=== PATIENT | female | born 1935 | race Caucasian/White ===

== ENCOUNTER 2018-01-02 12:27 | Inpatient (IN) ==
[2018-01-02] MEDS ORDERED: Naloxone 0.4 MG/ML INJ IVP PRN ×2 (15:23→15:40)
[2018-01-02] MEDS ORDERED: *HR* Heparin 5,000 UNIT/ML VIAL IVP ONE (15:54)
[2018-01-02] MEDS ORDERED: *HR* Heparin 5,000 UNIT/ML VIAL IVP PRN ×2 (15:54)
[2018-01-02] MEDS ORDERED: Ipratropium/Albuterol Neb 3 ML IH PRN (15:59)
[2018-01-02] MEDS ORDERED: Heparin 25,000 UNIT/500 ML D5W 25,000 UNIT/500 ML BAG IVC SCH (16:00)
[2018-01-02 16:29] LABS: INR 1.1; Prothrombin Time 12.1 Seconds (9.4-12.1)
[2018-01-02 16:32] LABS: Activated Partial Thrombo Time 40.2 Seconds (26.0-36.0)
[2018-01-02 16:37] LABS: Hemoglobin 10.8 g/dL (11.5-15.4); Mean Corpuscular HGB Conc 31.8 g/dL (31.6-35.5); Mean Corpuscular Hemoglobin 27.8 pg (28.0-33.3); Mean Corpuscular Volume 87.6 fL (83.0-100.0); Mean Platelet Volume 10.7 fL (9.4-12.4); Platelet Count 287 K/mcL (140-400); Red Blood Count 3.88 M/mcL (3.82-4.97); Red Cell Distribution Width 15.6 % (11.5-14.5)
--- NOTE | 2018-01-02 17:28 | Internal Med History&Physical ---
Date of Encounter: 01/02/18 Time of Encounter: 15:00 Internal Medicine - H&P: HPI Chief complaint: lethargy Admitted From: Home Plans for Post Hospital Care: Home History of present illness: Ms. Lopez is a 82 year old female with past medical history of COPD, diabetes, tobacco abuse presented to [facility] ED with 3 week history of lethargy. She states that she has been feeling generally unwell with occasional cough. Denies chest pain, SOB, palpitation, orthopnea, PND, or LE edema. She was seen by her PCP yesterday and had lab/CXR done which were abnormal hence she was directed to the ED. She does not have any known coronary disease but does have a history of AAA repair. Continues to smoke 1 pack a day. No fever/chills, nausea/vomiting, abdominal pain, or dysuria. On presentation to the ED, she was afebrile but BP was 98/55. SpO2 83% on RA which improved to 97% with venti mask. Initial labs showed WBC of 18.1, lactic acid 2.6, troponin 21, Cr 3.39, K 3.1. BNP 766, CXR showed L perihilar consolidation. EKG NSR, no ST-T changes concerning for ischemia. She was given ASA 324mg, IV Erick/azithromycin, and was transferred to [facility] for further management. Past Med Surg Social Fam HX - Past Medical History Medical history: COPD, diabetes, hyperlipidemia, hypertension, peripheral artery disease Psychiatric history: no psych history - Past Surgical History Surgical History: cataract, herniorrhaphy, vascular surgery Additional surgical history: AAA repair - Social History Smoking Status: Current every day smoker Packs per day: 1 Smokeless Tobacco Status: No Alcohol use: none Drug use: none - Family History Father History Unknown: Yes Mother History Unknown: Yes Internal Medicine - H&P: Meds Acetaminophen [Tylenol Arthritis] 650 mg PO Q6HR PRN 01/02/18 [History] Furosemide [Lasix] 40 mg PO DAILY 01/02/18 [History] Gabapentin [Neurontin] 200 mg PO TID 01/02/18 [History] Insulin Glargine [Lantus] 40 unit SQ TID 01/02/18 [History] Loratadine [Allergy Relief] 10 mg PO DAILY 01/02/18 [History] 3 Allergy/AdvReac Type Severity Reaction Status Date / Time No Known Allergies Allergy Verified 01/02/18 11:31 All Systems PM: A 10-system review of systems was performed and is negative for pertinent findings except as documented above in the HPI. - Constitutional Vitals: Pulse Resp BP Pulse Ox 72 18 94/58 94 01/02/18 14:30 01/02/18 14:30 01/02/18 14:30 01/02/18 14:30 Exam: General: Alert and oriented HEENT:EOM, pupils equal, round, and reactive. Cardiovascular:Normal S1 & S2, no murmurs or gallops. No JVD. Pulse regular. No LE edema. No chest wall tenderness Lungs: L>R scattered wheezes, no crackles. Abdomen:Soft, non-tender, no rigidity. Extremities:No deformity, no edema or tenderness, no joint swelling. Neurological:Normal cognition and motor skills. Skin:Normal color, no rash, no lesions. Pulses:Carotid and radial pulses normal +2. Rest of the physical exam is non-contributory Internal Med - H&P Results - Labs CBC & Chem 7: 01/02/18 16:06 Labs: Short CBC 01/02/18 Range/Units 16:06 WBC 17.7 H (4.3-11.1) K/mcL Hgb 10.8 L (11.5-15.4) g/dL Hct 34.0 L (35.3-44.9) % Plt Count 287 (140-400) K/mcL Cardiac Enzymes 01/02/18 Range/Units 16:02 Troponin I 47.53 H* (< 0.04) ng/mL - ABG Interpretation Additional comments: Mild hypercarbia with normal pH - EKG Data -: EKG Interpreted by Myself EKG shows normal: sinus rhythm Rate: normal - EKG Data Prior EKG available for review: no - Diagnostic Studies Chest x-ray Additional comments: L perihilar consolidation - Assessment and plan (1) Severe sepsis with acute organ dysfunction Current Visit: Yes Status: Acute Assessment and plan: Likely due to left-sided pneumonia, presented with lethargy, leukocytosis, elevated Cr and lactate. BP borderline on presentation responsive to IVF. lactate improved with IVF Given IV Rocephin and azithromycin at the outside hospital, will continue Bronchodilators PRN (2) Pneumonia Current Visit: Yes Status: Acute Assessment and plan: CURB 65 score of 3 Abx and bronchodilators as above Qualifiers: Pneumonia type: due to unspecified organism Laterality: left Lung location: lower lobe of lung Qualified Code(s): J18.1 - Lobar pneumonia, unspecified organism (3) NSTEMI (non-ST elevated myocardial infarction) Current Visit: Yes Status: Acute Assessment and plan: Trop 21 -> 47, doesn't have any anginal symptoms or ST elevation on EKG discussed with cardiology, likely type II event due to sepsis. Also has FABIANA which would prohibit contrast use Given ASA at OSH, started on heparin gtt Trend troponin Echocardiogram A1c, lipid panel tomorrow Cardiology consult (4) FABIANA (acute kidney injury) Current Visit: Yes Status: Acute Assessment and plan: Likely prerenal due to a combination of poor oral intake and ongoing lasix use continue IVF with potassium, will gently hydrate given tenuous respiratory status and elevated BNP hold off lasix Monitor Cr, if not responding to IVF, may consider further workup (5) Diabetes mellitus Current Visit: Yes Status: Chronic Assessment and plan: on lantus 40U BID and sliding scale novolog at home Continue lantus 40U BID, add low dose sliding scale continue gabapentin A1c as above Qualifiers: Diabetes mellitus type: type 2 Diabetes mellitus ferry terminal agent insulin use: with ferry terminal agent use Diabetes mellitus complication status: with neurologic complications Diabetes mellitus complication detail: with unspecified neuropathy Qualified Code(s): 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 2 diabetes mellitus with diabetic neuropathy, unspecified; Z79.4 - residential (current) use of insulin (6) DVT prophylaxis Current Visit: Yes Status: Acute Assessment and plan: on heparin gtt for NSTEMI as of now if heparin gtt is d/jaspreet, will transition to SQ heparin (7) Tobacco abuse Current Visit: Yes Status: Acute Assessment and plan: nicotine patch - Time Spent With Patient Total time spent is greater than 50% in coordination of care (as documented) at patient's floor/unit and/or counseling patient:
[2018-01-02] MEDS: 0.9 % Sodium Chloride w KCl 20 MEQ/1,000 ML MLS IVC SCH (17:31)
[2018-01-02] MEDS ORDERED: Acetaminophen 325 MG TABLET PO PRN (19:21)
[2018-01-02] MEDS: Insulin DETEMIR 100 UNIT/ML X5UNITS SQ SCH (23:08)
[2018-01-02] MEDS: Gabapentin 100 MG CAPSULE PO SCH (23:09)
[2018-01-02] MEDS ORDERED: D5% in Water 1,000 ML IVC PRN (23:40)
[2018-01-02] MEDS ORDERED: *HR* Dextrose 50 % in Water (Syg) 50 ML SYRINGE IVP PRN (23:40)
[2018-01-02] MEDS ORDERED: Dextrose Gel 15 GM/37.5 ML TUBE PO PRN ×2 (23:40)
[2018-01-03 00:58] LABS: Hematocrit 33.6 % (35.3-44.9); Hemoglobin 10.8 g/dL (11.5-15.4); Mean Corpuscular HGB Conc 32.1 g/dL (31.6-35.5); Mean Platelet Volume 10.7 fL (9.4-12.4); Platelet Count 272 K/mcL (140-400); Red Blood Count 3.86 M/mcL (3.82-4.97); Red Cell Distribution Width 15.6 % (11.5-14.5)
[2018-01-03 01:10] LABS: Calcium 8.2 mg/dL (8.6-10.3); Chol/HDL Ratio 4.4 (0-4.9); Magnesium 1.9 mg/dL (1.6-2.6); Potassium 3.3 mEq/L (3.5-5.1)
[2018-01-03 05:06] LABS: Bilirubin,Urine Small (Negative); Blood,Urine Negative (Negative); Clarity,Urine Cloudy (Clear); Color,Urine Dark Yellow (Yellow); Glucose,Urine (UA) Normal (Normal); Ketones,Urine Trace mg/dL (Negative); Leukocyte Esterase,Urine Negative (Negative); Nitrite,Urine Negative (Negative); Protein,Urine 100 mg/dL (Neg-Trace); Specific Gravity,Urine 1.026 (1.010-1.025); Urobilinogen,Urine Normal (Normal)
[2018-01-03 05:09] LABS: Bacteria,Urine None Seen per hpf (None-Few); Hyaline Casts,Urine Few per lpf (None-Few); Squamous Epithelial Cell,Urine Many per lpf (None-Few)
[2018-01-03] MEDS ORDERED: Insulin LISPRO 300 UNITS/3 ML VIAL SQ SCH (07:30)
[2018-01-03] MEDS ORDERED: Ringers Solution, Lactated 1,000 ML IVC ONE (08:01)
[2018-01-03] MEDS ORDERED: Ringers Solution, Lactated 1,000 ML ONE (08:07)
[2018-01-03 08:16] LABS: Estimated Average Glucose 160 mg/dl; Hemoglobin A1C 7.2 %
[2018-01-03] MEDS ORDERED: cefTRIAXone 2,000 MG in Water for inj. (sterile) 20 ML 20 ML IVP SCH (09:00)
[2018-01-03] MEDS ORDERED: Loratadine 10 MG TABLET PO SCH (09:00)
[2018-01-03] MEDS ORDERED: Aspirin Enteric Coated 81 MG Tablet PO SCH (09:00)
[2018-01-03] MEDS ORDERED: Azithromycin 500 MG in D5% in Water 250 ML IVPB SCH (09:00)
--- NOTE | 2018-01-03 09:11 | Internal Med Progress Note ---
<Ovidio Vu - Last Filed: 01/03/18 17:41> Date of Encounter: 01/03/18 - Assessment and plan (1) Septic shock Current Visit: Yes Status: Acute Assessment and plan: -likely due to her pneumonia, patient was hypotensive on admission with leukocytosis (17.7) - currently on Azithromycin 500mg (Day 1) and Ceftriaxone 2000mg (Day1), breathing on 3 L of O2 - Close monitoring of the vitals . I/Os (2) NSTEMI (non-ST elevated myocardial infarction) Current Visit: Yes Status: Acute Assessment and plan: -likely due to demand ischemia secondary to septic shock - Troponins 41.19, 21, 47.53. , Elevated BNP : 766 - ECG showed non-specific ST - on ASA, heparin drip. Avoiding beta blockers due to hypotension. - Cardiology has been consulted. plan for [facility] once FABIANA has resolved - (3) Pneumonia Current Visit: Yes Status: Acute Assessment and plan: Patient had a CURB 65 score of [address] without contrast showed patchy airspace opacity in the left upper lobe concerning for pneumonia, need by increased interstitial markings and small pleural effusions, possibly due to pulmonary edema. She is currently being treated with Rocephin and azithromycin. She is currently being treated with Rocephin and azithromycin. Sputum culture pending. Qualifiers: Pneumonia type: due to unspecified organism Laterality: unspecified laterality Lung location: unspecified part of lung Qualified Code(s): J18.9 - Pneumonia, unspecified organism (4) FABIANA (acute kidney injury) Current Visit: Yes Status: Acute Assessment and plan: -Likely pre-renal in nature secondary to septic shock -Cr: 3.04, patient is anuric, has no known Hx of CKD -Continue administering IV fluids and avoid all Nephrotoxic agents -likely to consult Nephrology in the morning depending upon the clinical picture (5) Hypokalemia Current Visit: Yes Status: Acute Assessment and plan: - likely due to her FABIANA -patient on PO KCL - Monitor vitals (6) Diabetes mellitus Current Visit: Yes Status: Chronic Assessment and plan: -patient has a known Medical Hx of DM - glucose was 194 on admission most recent value was 110 - patient currently on sliding scale insulin Qualifiers: Diabetes mellitus type: type 2 Diabetes mellitus residential insulin use: with residential use Diabetes mellitus complication status: with neurologic complications Diabetes mellitus complication detail: with unspecified neuropathy Qualified Code(s): 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 2 diabetes mellitus with diabetic neuropathy, unspecified; Z79.4 - manager intermediate (current) use of insulin (7) Hypertension Current Visit: Yes Status: Acute Assessment and plan: -chronic hypertensive - takes lisinopril 40mh PO daily at home - currently discontinued lisinopril due to septic shock (8) DVT prophylaxis Current Visit: Yes Status: Acute Assessment and plan: on Heparin drip - Time Spent With Patient Total time spent is greater than 50% in coordination of care (as documented) at patient's floor/unit and/or counseling patient: - Subjective Interval history: No acute events overnight. Patient was A&O*1 when i met her this morning. - Constitutional Vitals: Temp Pulse Resp BP Pulse Ox 98.2 F 63 18 88/58 98 01/03/18 07:03 01/03/18 07:03 01/03/18 07:03 01/03/18 07:03 01/03/18 07:03 - Respiratory Additional comments: increased egophony, increased tactile fremitus , decreased breath sounds Internal Medicine: Result - Labs CBC & Chem 7: 01/03/18 00:07 01/03/18 13:44 Labs: Short CBC 01/02/18 01/03/18 Range/Units 16:06 00:07 WBC 17.7 H 16.6 H (4.3-11.1) K/mcL Hgb 10.8 L 10.8 L (11.5-15.4) g/dL Hct 34.0 L 33.6 L (35.3-44.9) % Plt Count 287 272 (140-400) K/mcL BMP 01/03/18 00:07 Sodium 137 Potassium 3.3 L Chloride 98 Carbon Dioxide 26 BUN 56 H Creatinine 3.46 H Glucose 155 H Calcium 8.2 L Cardiac Enzymes 01/02/18 01/02/18 Range/Units 16:02 20:11 Troponin I 47.53 H* 41.19 H* (< 0.04) ng/mL Urine 01/03/18 Range/Units 04:30 Urine Color Dark Yellow (Yellow) Urine Clarity Cloudy A (Clear) Urine pH 5.0 (5.0-8.0) pH Units Ur Specific Ovid 1.026 H (1.010-1.025) Urine Protein 100 H (Neg-Trace) mg/dL Urine Glucose (UA) Normal (Normal) mg/dL - ABG Interpretation ABG results: PT/INR, D-dimer PT 12.1 Seconds (9.4-12.1) 01/02/18 16:06 Consult Discharge Plan - Plan Referrals: Zia Watkins CNP [Primary Care Provider] - Jade Hemphill MD [Family Provider] - <Hoang Duran A - Last Filed: 01/03/18 17:55> Date of Encounter: 01/03/18 Time of Encounter: 08:00 - Assessment and plan (1) Pneumonia Current Visit: Yes Status: Suspected Qualifiers: Pneumonia type: due to Pneumococcus Laterality: left Lung location: unspecified part of lung Qualified Code(s): J13 - Pneumonia due to Streptococcus pneumoniae (2) Acute renal failure due to tubular necrosis Current Visit: Yes Status: Acute (3) Septic shock Current Visit: Yes Status: Acute (4) FABIANA (acute kidney injury) Current Visit: Yes Status: Acute (5) NSTEMI (non-ST elevated myocardial infarction) Current Visit: Yes Status: Acute (6) Hypokalemia Current Visit: Yes Status: Acute (7) Hypertension Current Visit: Yes Status: Acute Qualifiers: Hypertension type: essential hypertension Qualified Code(s): I10 - Essential (primary) hypertension (8) Diabetes mellitus Current Visit: Yes Status: Chronic Qualifiers: Diabetes mellitus type: type 2 Diabetes mellitus intermodal dispatcher insulin use: with intermodal dispatcher use Diabetes mellitus complication status: with neurologic complications Diabetes mellitus complication detail: with unspecified neuropathy Qualified Code(s): 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 2 diabetes mellitus with diabetic neuropathy, unspecified; Z79.4 - manager intermediate (current) use of insulin (9) DVT prophylaxis Current Visit: Yes Status: Acute - Time Spent With Patient Total time spent is greater than 50% in coordination of care (as documented) at patient's floor/unit and/or counseling patient: - Constitutional Vitals: Temp Pulse Resp BP Pulse Ox 98.6 F 70 16 103/63 95 01/03/18 16:30 01/03/18 16:30 01/03/18 16:30 01/03/18 16:30 07/04/18 16:30 Internal Medicine: Result - Labs CBC & Chem 7: 01/03/18 00:07 01/03/18 13:44 Labs: Short CBC 01/03/18 Range/Units 00:07 WBC 16.6 H (4.3-11.1) K/mcL Hgb 10.8 L (11.5-15.4) g/dL Hct 33.6 L (35.3-44.9) % Plt Count 272 (140-400) K/mcL BMP 01/03/18 01/03/18 00:07 13:44 Sodium 137 136 Potassium 3.3 L 3.4 L Chloride 98 98 Carbon Dioxide 26 27 BUN 56 H 56 H Creatinine 3.46 H 3.04 H Glucose 155 H 116 H Calcium 8.2 L 8.4 L Cardiac Enzymes 01/02/18 Range/Units 20:11 Troponin I 41.19 H* (< 0.04) ng/mL Urine 01/03/18 Range/Units 04:30 Urine Color Dark Yellow (Yellow) Urine Clarity Cloudy A (Clear) Urine pH 5.0 (5.0-8.0) pH Units Ur Specific Ovid 1.026 H (1.010-1.025) Urine Protein 100 H (Neg-Trace) mg/dL Urine Glucose (UA) Normal (Normal) mg/dL - ABG Interpretation ABG results: PT/INR, D-dimer PT 12.1 Seconds (9.4-12.1) 01/02/18 16:06 - Impressions Impressions Chest CT 01/03/18 10:30 IMPRESSION: 1. Patchy airspace opacity in the left upper lobe concerning for pneumonia. 2. Increased interstitial markings and small pleural effusions, possibly due to pulmonary edema. 3. Small abdominal ascites. D/ / Francisco Tucker MD / Francisco Tucker MD Interpreting Provider: Francisco Tucker MD - Attending Attestation I examined this patient and my medical decision-making was reviewed with the Resident Physician on 01/03/18. I agree with the documented findings, disposition and treatment plan as described except to the extent set forth below. Ms Lopez is currently admitted for shock related to pneumonia. She has been hypotensive today. She remains high risk due to the potential for worsening clinical status. Ms Lopez is alert but has been hypotensive. She is denies pain at this. She feels a little nauseous. Coughing some. No abd pain. No diarrhea or urine symptoms. She has been transferred to due to her overall medical status. She has acute IN (presumed demand) as well and FABIANA. She is making some urine in her vieira. Exam alert Mod distress at this time Mucus membranes dry Heart not tachy at this time Lungs with some rhonchi Abd soft and nontender No edema Labs reviewed I/P 1. Septic shock - fluids given. 2. CAP - on IV abx 3. FABIANA 4. IN per cardiology Further diagnoses and plan as above Pt status guarded at this time.
[2018-01-03] MEDS: Insulin DETEMIR 100 UNIT/ML X5UNITS SQ SCH ×2 (09:31→21:44)
[2018-01-03] MEDS: Gabapentin 100 MG CAPSULE PO SCH ×3 (09:43→21:45)
[2018-01-03] MEDS: 0.9 % Sodium Chloride w KCl 20 MEQ/1,000 ML MLS IVC SCH (09:45)
[2018-01-03 09:56] LABS: Thyroid Stimulating Hormone 1.335 mcIU/mL (0.340-5.600)
[2018-01-03] MEDS ORDERED: Ipratropium/Albuterol Neb 3 ML IH PRN (11:09)
[2018-01-03] MEDS ORDERED: 0.9 % Sodium Chloride w KCl 20 MEQ/1,000 ML MLS IVC SCH (11:09)
[2018-01-03] MEDS ORDERED: *HR* Heparin 5,000 UNIT/ML VIAL IVP PRN (11:09)
[2018-01-03] MEDS ORDERED: D5% in Water 1,000 ML IVC PRN (11:09)
[2018-01-03] MEDS ORDERED: *HR* Dextrose 50 % in Water (Syg) 50 ML SYRINGE IVP PRN (11:09)
[2018-01-03] MEDS ORDERED: Acetaminophen 325 MG TABLET PO PRN (11:09)
[2018-01-03] MEDS ORDERED: Dextrose Gel 15 GM/37.5 ML TUBE PO PRN ×2 (11:09)
[2018-01-03] MEDS ORDERED: Naloxone 0.4 MG/ML INJ IVP PRN (11:09)
--- NOTE | 2018-01-03 11:10 | Cardiology Consult Note ---
<Vy Becerra Chriss - Last Filed: 01/03/18 11:07> Date of Encounter: 01/03/18 Time of Encounter: 09:00 Assessment and Plan (1) Pneumonia Current Visit: Yes Status: Acute Per cardiology: -Pneumonia noted per x-ray. -On ATB. -WBC today 16.6. -Management per primary service. Qualifiers: Pneumonia type: due to unspecified organism Laterality: unspecified laterality Lung location: unspecified part of lung Qualified Code(s): J18.9 - Pneumonia, unspecified organism (2) NSTEMI (non-ST elevated myocardial infarction) Current Visit: Yes Status: Acute Per cardiology: -Troponins 21, 47.53, 41.19. -Denies chest pain. -ECG with no ischemic changes. Non-specific ST and T wave abormalities noted. -TTE pending. -On asa, heparin drip. Not on BB due to hypotension. -Of note, now with FABIANA and creatinine 3.46 today. -Denies previous cardiac work up. -Discussed and reviewed with Dr.John Vila, plan for LHC when able due to FABIANA. Currently chest pain free. Can consider LHC sooner if clinical condition warrants. -TTE pending. -Will start statin. (3) FABIANA (acute kidney injury) Current Visit: Yes Status: Acute Per cardiology: -Creatinine 3.46. -Denies previous renal disease. -Management per primary service. Discussion w patient/family: The assessment and plan as outlined above was discussed with the patient who expressed understanding and agreement. All questions were answered. Thank you for involving us in the care of your patient. Please call with any questions. Discussed and reviewed with Dr.John Vila. History of Present Illness Consult date: 01/02/18 Requesting physician: GLORIA VILLELA Consult reason: NSTEMI Chief complaint: weakness History of present illness: Ms. Lopez is a 82 year old female with a relevant past medical history of tobacco abuse, COPD, HTN, HLD, DM, PAD who presented to [facility] with complaints of weakness at home. Patient states for the past few weeks has noticed increased fatigue. Denies chest pain or shortness of breath. Denies increased edema. Denies previous cardiac history or cardiac work up. Denies previous renal disease. Past Med Surg Social Fam HX - Past Medical History Attestation: Yes The following information was validated with the patient. Source: patient Medical history: COPD, diabetes, hyperlipidemia, hypertension, peripheral artery disease Psychiatric history: no psych history - Past Surgical History Surgical History: cataract, herniorrhaphy, vascular surgery Additional surgical history: AAA repair - Social History Smoking Status: Current every day smoker Packs per day: 1 Smokeless Tobacco Status: No Alcohol use: none Drug use: none - Family History Father History Unknown: Yes Mother History Unknown: Yes Medications and Allergies Acetaminophen [Tylenol Arthritis] 650 mg PO Q6HR PRN 01/02/18 [History] Furosemide [Lasix] 40 mg PO DAILY 01/02/18 [History] Gabapentin [Neurontin] 200 mg PO TID 01/02/18 [History] Insulin Glargine [Lantus] 40 unit SQ BID 01/02/18 [History] Loratadine [Allergy Relief] 10 mg PO DAILY 01/02/18 [History] Amlodipine Besylate [Amlodipine Besylate] 10 mg PO DAILY 01/03/18 [History] Aspirin Enteric Coated [Aspirin EC] 325 mg PO DAILY 01/03/18 [History] Atorvastatin Calcium 80 mg PO HS 01/03/18 [History] Cholecalciferol (D-3) [Vitamin D] 5,000 unit PO DAILY 01/03/18 [History] Lisinopril [Zestril] 40 mg PO DAILY 01/03/18 [History] 3 Allergy/AdvReac Type Severity Reaction Status Date / Time No Known Allergies Allergy Verified 01/02/18 11:31 All Systems Review: The remainder of the systems were reviewed and are negative - Constitutional Constitutional: fatigue, weakness - Cardiovascular Cardiovascular: as per HPI Physical Examination Vital Signs, Last 4 Hours BP 01/03/18 10:04 99/52 Vital Signs Pulse Rate 72 01/02/18 14:30 Respiratory Rate 18 01/02/18 14:30 Blood Pressure 94/58 01/02/18 14:30 O2 Sat by Pulse Oximetry 94 01/02/18 14:30 Temperature 98.2 F 01/03/18 07:03 Pulse Rate 63 01/03/18 07:03 Respiratory Rate 18 01/03/18 07:03 Blood Pressure 99/52 01/03/18 10:04 O2 Sat by Pulse Oximetry 98 01/03/18 07:03 General: Conversant, No Apparent Distress HEENT: Atraumatic, Normocephaly, Mucus Membranes Moist Neck: No JVD, Normal carotid pulses Cardiac: Reg Rate and Rhythm, Normal S1 and S2, No Murmur Lungs: Other (Lung sounds diminshed to left upper lobe. ) Neuro: Alert and responsive, No focal deficits noted Abdomen: Soft, Non-Tender Skin: No rashes noted on visualized skin Musculoskeletal: No Chest Wall Tenderness Extremities: No Clubbing, No Cyanosis, No Edema, Normal Pulses Results 01/03/18 00:07 01/03/18 00:07 Lab Results Impressions Chest CT 01/03/18 10:30 IMPRESSION: 1. Patchy airspace opacity in the left upper lobe concerning for pneumonia. 2. Increased interstitial markings and small pleural effusions, possibly due to pulmonary edema. 3. Small abdominal ascites. D/ / Francisco Tucker MD / Francisco Tucker MD Interpreting Provider: Francisco Tucker MD Active Medications Acetaminophen (Tylenol) 650 mg PO Q6HR PRN PRN Reason: pain Albuterol/Ipratropium (Duoneb) 3 ml IH [id number] PRN PRN Reason: Shortness Of Breath/Wheezing Stop: 07/04/18 16:00 Aspirin (Aspirin Ec) 81 mg PO DAILY [facility] Stop: 07/05/18 09:01 Dextrose/Water (Dextrose 50% (Syg)) 25 ml IVP AD PRN PRN Reason: Hypoglycemia Stop: 07/04/18 23:41 Gabapentin (Neurontin) 200 mg PO TID [facility] Stop: 07/04/18 21:01 Glucagon (Glucagen) 1 mg IM ONCE PRN PRN Reason: Hypoglycemia Stop: 07/04/18 23:41 Glucose (Gluctose) 15 gm PO ONCE PRN PRN Reason: Hypoglycemia Stop: 07/04/18 23:41 Glucose (Gluctose) 30 gm PO ONCE PRN PRN Reason: Hypoglycemia Stop: 07/04/18 23:41 Heparin Sodium (Porcine) (Heparin) 4,000 unit IVP Q6HR PRN PRN Reason: SEE COMMENTS Stop: 07/04/18 15:55 Heparin Sodium (Porcine) (Heparin) 2,000 unit IVP Q6H PRN PRN Reason: SEE COMMENTS Stop: 07/04/18 15:55 Potassium Chloride/Sodium Chloride (Kcl 20 Meq In 0.9% Sodium Chloride) 20 meq in 1,000 mls @ 70 mls/hr IVC .[id number] [facility] Stop: 01/03/18 20:19 Azithromycin 500 mg/ Dextrose 250 mls @ 250 mls/hr IVPB DAILY [facility] Stop: 07/05/18 09:01 Ceftriaxone Sodium 2,000 mg/ (Sterile Water) 20 mls @ 600 mls/hr IVP DAILY [facility] Stop: 07/05/18 09:01 Dextrose (Dextrose 5%) 1,000 mls @ 100 mls/hr IVC .Q10H PRN PRN Reason: HYPOGLYCEMIA Stop: 07/04/18 23:41 Heparin Sodium/Dextrose (Heparin 25,000 Unit/500 Ml D5w) 25,000 unit in 500 mls @ 19.991 mls/hr IVC .Q24H WANDA; 11.32 UNIT/KG/HR PRN Reason: Protocol Stop: 07/04/18 16:01 Insulin Detemir (Levemir) 40 unit SQ BID [facility] Stop: 07/04/18 21:01 Insulin Human Lispro (Humalog) 0 units SQ TIDAC [facility] PRN Reason: Protocol Stop: 07/05/18 07:31 Loratadine (Claritin) 10 mg PO DAILY [facility] PRN Reason: Protocol Stop: 07/05/18 09:01 Naloxone HCl (Narcan) 0.4 mg IVP Q2MIN PRN PRN Reason: SEE COMMENTS Stop: 07/04/18 15:41 Laboratory Tests 01/02/18 01/02/18 01/02/18 11:21 16:02 20:11 WBC Hgb Creatinine Troponin I 21.00 H* 47.53 H* 41.19 H* 01/03/18 01/03/18 00:07 00:07 WBC 16.6 H Hgb 10.8 L Creatinine 3.46 H Troponin I - Imaging and Cardiology Chest Xray: report reviewed Echo: pending - EKG Interpretation EKG results cardiology: personally reviewed (ECG with SR, HR 69. Non-specific ST and T wave abnormalities noted.), other (Telemetry reviewed with average HR previous 12 hours noted to be 71, SR. PACs noted.) Consult Discharge Plan - Plan Referrals: Jade Hemphill MD [Family Provider] - Zia Watkins CNP [Primary Care Provider] - <Conner Vila - Last Filed: 01/03/18 11:50> Date of Encounter: 01/03/18 - Attending Attestation I have personally performed a face to face evaluation on this patient. I have reviewed and agree with the care plan. History and Exam by me shows Presented with pneumonia/ sepsis, ARF and elevated troponin. Denies chest pain and EKG shows no injury current. At this point would treat sepsis and stabilize pt. She will likely require heart catheterizaton when more stable/ renal function improves. Assessment and Plan Discussion w patient/family: The assessment and plan as outlined above was discussed with the patient and/or family members who expressed understanding and agreement. All questions were answered. Thank you for involving us in the care of your patient. Please call with any questions. History of Present Illness History of present illness: Ms. Lopez is a 82 year old female All Systems Review: The remainder of the systems were reviewed and are negative Physical Examination Vital Signs, Last 4 Hours BP 01/03/18 10:04 99/52 Results 01/03/18 00:07 01/03/18 00:07 Lab Results 01/02/18 01/02/18 01/02/18 16:02 16:06 16:06 WBC 17.7 H Hgb 10.8 L Hct 34.0 L Plt Count 287 INR 1.1 APTT 40.2 H Sodium Potassium Chloride Carbon Dioxide BUN Creatinine Glucose Calcium Magnesium Troponin I 47.53 H* TSH 01/02/18 01/03/18 01/03/18 20:11 00:04 00:07 WBC 16.6 H Hgb 10.8 L Hct 33.6 L Plt Count 272 INR APTT 67.2 H D Sodium Potassium Chloride Carbon Dioxide BUN Creatinine Glucose Calcium Magnesium Troponin I 41.19 H* TSH 01/03/18 01/03/18 00:07 06:57 WBC Hgb Hct Plt Count INR APTT 45.0 H Sodium 137 Potassium 3.3 L Chloride 98 Carbon Dioxide 26 BUN 56 H Creatinine 3.46 H Glucose 155 H Calcium 8.2 L Magnesium 1.9 Troponin I TSH 1.335
[2018-01-03] MEDS ORDERED: Ipratropium/Albuterol Neb 3 ML IH SCH (12:00)
[2018-01-03] MEDS: Insulin LISPRO 300 UNITS/3 ML VIAL SQ SCH ×2 (12:22→16:39)
[2018-01-03 14:24] LABS: Calcium 8.4 mg/dL (8.6-10.3); Potassium 3.4 mEq/L (3.5-5.1)
[2018-01-03 14:38] LABS: Activated Partial Thrombo Time 110.7 Seconds (26.0-36.0)
[2018-01-03 14:42] LABS: Heparin anti-factor XA UFH 0.48 IU/mL (0.30-0.70)
[2018-01-03] MEDS: Heparin 25,000 UNIT/500 ML D5W 25,000 UNIT/500 ML BAG IVC SCH (15:45)
[2018-01-03] MEDS ORDERED: methylPREDNISolone 125 MG/2 ML VIAL IVP SCH (16:00)
[2018-01-04] MEDS: *HR* Heparin 5,000 UNIT/ML VIAL IVP PRN (02:40)
[2018-01-04 05:47] LABS: Basophils # 0.1 K/mcL (0.0-0.2); Basophils % 0.3 %; Eosinophils # 0.2 K/mcL (0.0-0.6); Eosinophils % 1.5 %; Hematocrit 35.2 % (35.3-44.9); Hemoglobin 10.9 g/dL (11.5-15.4); Lymphocytes # 2.1 K/mcL (0.6-4.6); Lymphocytes % 13.9 %; Mean Corpuscular Hemoglobin 27.7 pg (28.0-33.3); Mean Corpuscular Volume 89.3 fL (83.0-100.0); Mean Platelet Volume 10.5 fL (9.4-12.4); Monocytes # 1.1 K/mcL (0.0-1.3); Monocytes % 6.9 %; Neutrophils # 11.4 K/mcL (1.6-8.9); Nucleated Red Blood Cells 0.2 /100 WBC (0); Platelet Count 247 K/mcL (140-400); Red Blood Count 3.94 M/mcL (3.82-4.97); Red Cell Distribution Width 15.6 % (11.5-14.5); Segmented Neutrophils % 75.4 %
[2018-01-04 06:15] LABS: Albumin 3.2 g/dL (3.5-5.7); Albumin/Globulin Ratio 1.1 (1.1-2.2); Bilirubin,Total 0.3 mg/dL (0.3-1.0); Calcium 8.5 mg/dL (8.6-10.3); Potassium 3.8 mEq/L (3.5-5.1); Total Protein 6.2 g/dL (6.4-8.9)
[2018-01-04] MEDS: Azithromycin 500 MG in D5% in Water 250 ML IVPB SCH (08:26)
[2018-01-04] MEDS: Gabapentin 100 MG CAPSULE PO SCH ×3 (08:26→20:23)
[2018-01-04] MEDS: Aspirin Enteric Coated 81 MG Tablet PO SCH (08:26)
[2018-01-04] MEDS: Loratadine 10 MG TABLET PO SCH (08:26)
[2018-01-04] MEDS: Insulin LISPRO 300 UNITS/3 ML VIAL SQ SCH ×3 (08:31→18:21)
[2018-01-04] MEDS: Insulin DETEMIR 100 UNIT/ML X5UNITS SQ SCH ×2 (08:32→20:24)
--- NOTE | 2018-01-04 08:38 | Electrocardiograph Report ---
[place] [id number] Test Date: 2018-01-02 Pat Name: Cait Lopez Department: 111 Room: 2N14 Gender: F Sourcing Intern: : 1935 Requested By: Devendra Muller Order Number: [id number] Reading MD: Remy Robert Measurements Intervals [place] Rate: 69 P: 67 LA: 144 QRS: -41 QRSD: 118 T: -60 QT: 364 QTc: 383 Interpretive Statements SINUS RHYTHM MARKED LEFT AXIS DEVIATION LEFT VENTRICULAR HYPERTROPHY AND ST-T CHANGE BASELINE ARTIFACT Electronically Signed On 01-04-2018 8:37:25 EDT by Remy Robert
--- NOTE | 2018-01-04 08:44 | Electrocardiograph Report ---
[place] [id number] Test Date: 2018-01-03 Pat Name: Cait Lopez Department: 109 Room: 2N14 Gender: F Vp Foundation: : 1935 Requested By: Geoffrey Garza Order Number: [id number] Reading MD: Remy Robert Measurements Intervals [place] Rate: 77 P: [place]: 0 QRS: -43 QRSD: 118 T: 95 QT: 380 QTc: 411 Interpretive Statements ATRIAL FIBRILLATION WITH ABERRANT CONDUCTION OR VENTRICULAR PREMATURE COMPLEXES MARKED LEFT AXIS DEVIATION MODERATE INTRAVENTRICULAR CONDUCTION DELAY Electronically Signed On 01-04-2018 8:43:34 EDT by Remy Robert
[2018-01-04] MEDS ORDERED: cefTRIAXone 2,000 MG in Water for inj. (sterile) 20 ML 20 ML IVP SCH (09:00)
--- NOTE | 2018-01-04 10:08 | Cardiology Progress Note ---
Date of Encounter: 01/04/18 Time of Encounter: 08:30 Assessment and Plan (1) Pneumonia Current Visit: Yes Status: Suspected Per cardiology: -Pneumonia noted per x-ray. -On ATB. -Management per primary service. Qualifiers: Pneumonia type: due to Pneumococcus Laterality: left Lung location: unspecified part of lung Qualified Code(s): J13 - Pneumonia due to Streptococcus pneumoniae (2) NSTEMI (non-ST elevated myocardial infarction) Current Visit: Yes Status: Acute Per cardiology: -Troponins 21, 47.53, 41.19. -Denies chest pain. -ECG with no acute ischemic changes. Non-specific ST and T wave abormalities noted. -TTE with LVEF 20-25%, global hypokinesis. -On asa, heparin drip. Not on BB due to hypotension. -Of note, now with FABIANA. -Denies previous cardiac work up. -Discussed and reviewed with Dr.John Vila, plan for LHC when able due to FABIANA. Currently chest pain free. Can consider LHC sooner if clinical condition warrants. -WIll make NPO after midnight. (3) FABIANA (acute kidney injury) Current Visit: Yes Status: Acute Per cardiology: -Creatinine 3.46 on admission, now 2.22. -Denies previous renal disease. -Management per primary service. Discussion w patient/family: The assessment and plan as outlined above was discussed with the patient who expressed understanding and agreement. All questions were answered. Thank you for involving us in the care of your patient. Please call with any questions. Discussed and reviewed with Dr.John Vila. Subjective Principal diagnosis: pneumonia, sepsis, NSTEMI Interval history: Patient denies chest pain. Reports increased shortness of breath and congestion. Reports cough, however non-productive. Objective Vital Signs, Last 4 Hours Temp Pulse Resp BP Pulse Ox 01/04/18 07:47 98.6 F 83 18 115/65 97 General: Conversant, No Apparent Distress HEENT: Atraumatic, Normocephaly, Mucus Membranes Moist Neck: No JVD, Normal carotid pulses Cardiac: Reg Rate and Rhythm, Normal S1 and S2, No Murmur Lungs: Other (Inspiratory wheezes noted throughout. ) Neuro: Alert and responsive, No focal deficits noted Abdomen: Soft, Non-Tender Skin: No rashes noted on visualized skin Musculoskeletal: No Chest Wall Tenderness Extremities: No Clubbing, No Cyanosis, No Edema, Normal Pulses Results 01/04/18 05:26 01/04/18 05:26 Lab Results Impressions Chest CT 01/03/18 10:30 IMPRESSION: 1. Patchy airspace opacity in the left upper lobe concerning for pneumonia. 2. Increased interstitial markings and small pleural effusions, possibly due to pulmonary edema. 3. Small abdominal ascites. D/ / Francisco Tucker MD / Francisco Tucker MD Interpreting Provider: Francisco Tucker MD Echocardiogram 01/03/18 23:45 Impressions: LVEF 20-25%. Severe global left ventricular systolic dysfunction. Diastolic dysfunction, NOS Moderate aortic stenosis by valve area, mild by gradient likely underestimated secondary to low cardiac output Mild pulmonary hypertension. Recommend cardiology consultation Left Ventricular Wall Motion: Rest Echo Findings The apex, apical inferior, mid inferior, basal inferior, apical anterior, mid anterior, basal anterior, apical septal, mid inferior septal, basal inferior septal, apical lateral, mid anterior lateral, basal anterior lateral, mid anterior septal, mid inferior lateral, basal anterior septal and basal inferior lateral harmon were hypokinetic. Findings: Study Quality * Technically adequate exam. Right Ventricle * Normal right ventricular structure and function. Left Atrium * Normal left atrial size. Right Atrium * Normal right atrial size. Interatrial Septum * No evidence of PFO by color Doppler. Aorta * Normally sized aortic root. Pericardium * The pericardium appears normal. ECG Findings * Normal sinus rhythm. Left Ventricle * Severe global left ventricular systolic dysfunction. * LVEF 20-25%. * Diastolic dysfunction, NOS Mitral Valve * No mitral stenosis. * Mildly calcified mitral valve leaflets. * Small fliamentous structure attached to mitral valve consistent with ruptured chordae * Mild mitral regurgitation. Aortic Valve * No aortic regurgitation. * Mildly calcified aortic valve leaflets. * Trileaflet aortic valve. * Moderate aortic stenosis. * Peak and mean gradients are 15 8 mmHg, respectively. Pulmonic Valve * No pulmonic regurgitation. * No pulmonic stenosis. Tricuspid Valve * Estimated RVSP is 37 mmHg. * Mild pulmonary hypertension. * No tricuspid stenosis. * Mild tricuspid regurgitation. * Estimated RA pressure is 10-15 mmHg. IVC * The IVC is dilated. * < 50% respiratory change. Active Medications Acetaminophen (Tylenol) 650 mg PO Q6HR PRN PRN Reason: pain Albuterol/Ipratropium (Duoneb) 3 ml IH Q0SFNEC PRN PRN Reason: Shortness Of Breath/Wheezing Stop: 07/04/18 16:00 Aspirin (Aspirin Ec) 81 mg PO DAILY WANDA Stop: 07/05/18 09:01 Last Admin: 01/04/18 08:26 Dose: 81 mg Atorvastatin Calcium (Lipitor) 20 mg PO HS ON LICENSE OF [facility] Stop: 07/05/18 21:01 Last Admin: 01/03/18 21:45 Dose: 20 mg Dextrose/Water (Dextrose 50% (Syg)) 25 ml IVP AD PRN PRN Reason: Hypoglycemia Stop: 07/04/18 23:41 Gabapentin (Neurontin) 200 mg PO TID ON LICENSE OF [facility] Stop: 07/04/18 21:01 Last Admin: 01/04/18 08:26 Dose: 200 mg Glucagon (Glucagen) 1 mg IM ONCE PRN PRN Reason: Hypoglycemia Stop: 07/04/18 23:41 Glucose (Gluctose) 15 gm PO ONCE PRN PRN Reason: Hypoglycemia Stop: 07/04/18 23:41 Glucose (Gluctose) 30 gm PO ONCE PRN PRN Reason: Hypoglycemia Stop: 07/04/18 23:41 Heparin Sodium (Porcine) (Heparin) 4,000 unit IVP Q6HR PRN PRN Reason: SEE COMMENTS Stop: 07/04/18 15:55 Last Admin: 01/04/18 02:40 Dose: 4,000 unit Heparin Sodium (Porcine) (Heparin) 2,000 unit IVP Q6H PRN PRN Reason: SEE COMMENTS Stop: 07/04/18 15:55 Azithromycin 500 mg/ Dextrose 250 mls @ 250 mls/hr IVPB DAILY ON LICENSE OF [facility] Stop: 07/05/18 09:01 Last Admin: 01/04/18 08:26 Dose: 250 mls/hr Ceftriaxone Sodium 2,000 mg/ (Sterile Water) 20 mls @ 600 mls/hr IVP DAILY ON LICENSE OF [facility] Stop: 07/05/18 09:01 Last Admin: 01/04/18 08:27 Dose: 600 mls/hr Dextrose (Dextrose 5%) 1,000 mls @ 100 mls/hr IVC .Q10H PRN PRN Reason: HYPOGLYCEMIA Stop: 07/04/18 23:41 Heparin Sodium/Dextrose (Heparin 25,000 Unit/500 Ml D5w) 25,000 unit in 500 mls @ 19.991 mls/hr IVC .Q24H WANDA; 11.32 UNIT/KG/HR PRN Reason: Protocol Stop: 07/04/18 16:01 Last Titration: 01/04/18 02:35 Dose: 14.47 unit/kg/hr, 25.554 mls/hr Insulin Detemir (Levemir) 40 unit SQ BID ON LICENSE OF [facility] Stop: 07/04/18 21:01 Last Admin: 01/04/18 08:32 Dose: 40 unit Insulin Human Lispro (Humalog) 0 units SQ TIDAC WANDA PRN Reason: Protocol Stop: 07/05/18 07:31 Last Admin: 01/04/18 08:31 Dose: 2 units Loratadine (Claritin) 10 mg PO DAILY ON LICENSE OF [facility] PRN Reason: Protocol Stop: 07/05/18 09:01 Last Admin: 01/04/18 08:26 Dose: 10 mg Naloxone HCl (Narcan) 0.4 mg IVP Q2MIN PRN PRN Reason: SEE COMMENTS Stop: 07/04/18 15:41 Laboratory Tests 01/03/18 01/04/18 01/04/18 00:07 05:26 05:26 WBC 15.2 H Hgb 10.9 L Creatinine 3.46 H 2.22 H - Imaging and Cardiology Chest Xray: report reviewed Echo: report reviewed - EKG Interpretation EKG results cardiology: other (Telemetry reviewed with average HR previous 12 hours noted to be 82, SR. PVCs and PACs noted.) Consult Discharge Plan - Plan Referrals: Jade Hemphill MD [Family Provider] - Zia Watkins CNP [Primary Care Provider] -
[2018-01-04] MEDS ORDERED: Furosemide 40 MG/4 ML VIAL IVP ONE (15:09)
--- NOTE | 2018-01-04 15:16 | Internal Med Progress Note ---
<Ovidio Vu - Last Filed: 01/04/18 17:15> Date of Encounter: 01/04/18 Time of Encounter: 15:00 - Assessment and plan (1) Pneumonia Current Visit: Yes Status: Suspected Assessment and plan: -patient was admitted with CURB65 score of 3. - Currently the pneumonia seems to be resolving, she is on day 2 of Azithromycin 500mg and her Rocephin dose has been lowered from 2000mgto 1000mg. Her sputum cultures came out to be negative for Legionella and S.Pneumo. - Continue her Abx regimen for a total 5 days Qualifiers: Pneumonia type: due to Pneumococcus Laterality: left Lung location: unspecified part of lung Qualified Code(s): J13 - Pneumonia due to Streptococcus pneumoniae (2) NSTEMI (non-ST elevated myocardial infarction) Current Visit: Yes Status: Acute Assessment and plan: - likely due to demand ischemia , secondary to septic shock. - Patient vitals are stable and she endorses no distress - on ASA, heparin drip. Cardiology plans for [facility] tomorrow once FABIANA has resolved. (3) FABIANA (acute kidney injury) Current Visit: Yes Status: Acute Assessment and plan: - likely pre-renal in nature secondary to her septic shock - FABIANA likely resolving Cr trending down (2.22) - avoid all nephrotoxc agents (4) Septic shock Current Visit: Yes Status: Acute Assessment and plan: - likely due to her pneumonia. Septic shock seems to have resolved . - patient continues to be on Azithromycin 500mg (day 1), and Ceftriaoxne has been decreased to 1000mg , breathing on 2L of O2 - Close monitoring of the vitals, I/Os. (5) Diabetes mellitus Current Visit: Yes Status: Chronic Assessment and plan: - Patient has a known MedHx of DM - Glucose was 194 on admission, the most recent read was 137 - patient currently on sliding scale insulin Qualifiers: Diabetes mellitus type: type 2 Diabetes mellitus usp insulin use: with usp use Diabetes mellitus complication status: with neurologic complications Diabetes mellitus complication detail: with unspecified neuropathy Qualified Code(s): 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 2 diabetes mellitus with diabetic neuropathy, unspecified; Z79.4 - roasterman (current) use of insulin (6) Hypokalemia Current Visit: Yes Status: Acute Assessment and plan: - She was hypokalemic yesterday ,likely due to her FABIANA - Hypokalemia has resolved today (3.8) - Continue to monitor her vitals (7) Hypertension Current Visit: Yes Status: Acute Assessment and plan: - patient has a PMHx of HTN, - patient is currently normotensive (125/83). - retstart home antihypertensives tomorrow depending upon the BP status Qualifiers: Hypertension type: essential hypertension Qualified Code(s): I10 - Essential (primary) hypertension (8) DVT prophylaxis Current Visit: Yes Status: Acute Assessment and plan: on heparin drip - Time Spent With Patient Total time spent is greater than 50% in coordination of care (as documented) at patient's floor/unit and/or counseling patient: - Subjective Interval history: No acute events overnight. Patient was A&O*3 when i met her this morning. She is out of the septic shock. her kidney function is getting better with Cr trending down (2.22) .Her WBC count has gone down since yesterday (15.2). - Constitutional Vitals: Temp Pulse Resp BP Pulse Ox 98.4 F 72 17 125/83 97 01/04/18 14:35 01/04/18 14:35 01/04/18 14:35 01/04/18 14:35 01/04/18 14:35 General appearance: Present: A&O X 3 - Head Head exam: Present: atraumatic, normocephalic - ENT ENT exam: Present: normal exam - Respiratory Additional comments: bilateral wheezing in both the lung steward. - Cardiovascular Cardiovascular exam: Present: RRR Additional comments: no gallops, murmurs or rubs - GI/Abdominal GI/Abdominal exam: Present: soft Additional comments: non-tender - Psychiatric Additional comments: good mentation Internal Medicine: Result - Labs CBC & Chem 7: 01/04/18 05:26 01/04/18 05:26 Labs: Short CBC 01/04/18 Range/Units 05:26 WBC 15.2 H (4.3-11.1) K/mcL Hgb 10.9 L (11.5-15.4) g/dL Hct 35.2 L (35.3-44.9) % Plt Count 247 (140-400) K/mcL Neutrophils # 11.4 H (1.6-8.9) K/mcL BMP 01/04/18 05:26 Sodium 136 Potassium 3.8 Chloride 102 Carbon Dioxide 21 L BUN 56 H Creatinine 2.22 H Glucose 137 H Calcium 8.5 L Liver Function 01/04/18 Range/Units 05:26 Total Bilirubin 0.3 (0.3-1.0) mg/dL AST 32 (13-39) Units/L ALT 15 (7-52) Units/L Alkaline Phosphatase 58 (34-104) Units/L Albumin 3.2 L (3.5-5.7) g/dL - ABG Interpretation ABG results: PT/INR, D-dimer PT 12.1 Seconds (9.4-12.1) 01/02/18 16:06 - Impressions Impressions Echocardiogram 01/03/18 23:45 Impressions: LVEF 20-25%. Severe global left ventricular systolic dysfunction. Diastolic dysfunction, NOS Moderate aortic stenosis by valve area, mild by gradient likely underestimated secondary to low cardiac output Mild pulmonary hypertension. Recommend cardiology consultation Left Ventricular Wall Motion: Rest Echo Findings The apex, apical inferior, mid inferior, basal inferior, apical anterior, mid anterior, basal anterior, apical septal, mid inferior septal, basal inferior septal, apical lateral, mid anterior lateral, basal anterior lateral, mid anterior septal, mid inferior lateral, basal anterior septal and basal inferior lateral harmon were hypokinetic. Findings: Study Quality * Technically adequate exam. Right Ventricle * Normal right ventricular structure and function. Left Atrium * Normal left atrial size. Right Atrium * Normal right atrial size. Interatrial Septum * No evidence of PFO by color Doppler. Aorta * Normally sized aortic root. Pericardium * The pericardium appears normal. ECG Findings * Normal sinus rhythm. Left Ventricle * Severe global left ventricular systolic dysfunction. * LVEF 20-25%. * Diastolic dysfunction, NOS Mitral Valve * No mitral stenosis. * Mildly calcified mitral valve leaflets. * Small fliamentous structure attached to mitral valve consistent with ruptured chordae * Mild mitral regurgitation. Aortic Valve * No aortic regurgitation. * Mildly calcified aortic valve leaflets. * Trileaflet aortic valve. * Moderate aortic stenosis. * Peak and mean gradients are 15 8 mmHg, respectively. Pulmonic Valve * No pulmonic regurgitation. * No pulmonic stenosis. Tricuspid Valve * Estimated RVSP is 37 mmHg. * Mild pulmonary hypertension. * No tricuspid stenosis. * Mild tricuspid regurgitation. * Estimated RA pressure is 10-15 mmHg. IVC * The IVC is dilated. * < 50% respiratory change. Consult Discharge Plan - Plan Referrals: Zia Watkins, [employer] [Primary Care Provider] - 01/22/18 11:40 am <Hoang Duran - Last Filed: 01/04/18 17:41> Date of Encounter: 01/04/18 - Assessment and plan (1) Pneumonia Current Visit: Yes Status: Suspected Qualifiers: Pneumonia type: due to Pneumococcus Laterality: left Lung location: unspecified part of lung Qualified Code(s): J13 - Pneumonia due to Streptococcus pneumoniae (2) Septic shock Current Visit: Yes Status: Resolved (3) FABIANA (acute kidney injury) Current Visit: Yes Status: Acute (4) Diabetes mellitus Current Visit: Yes Status: Chronic Qualifiers: Diabetes mellitus type: type 2 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 Diabetes mellitus complication status: with neurologic complications Diabetes mellitus complication detail: with unspecified neuropathy Qualified Code(s): 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 2 diabetes mellitus with diabetic neuropathy, unspecified; Z79.4 - roasterman (current) use of insulin (5) NSTEMI (non-ST elevated myocardial infarction) Current Visit: Yes Status: Acute (6) Hypokalemia Current Visit: Yes Status: Acute (7) Hypertension Current Visit: Yes Status: Acute Qualifiers: Hypertension type: essential hypertension Qualified Code(s): I10 - Essential (primary) hypertension (8) Acute renal failure due to tubular necrosis Current Visit: Yes Status: Acute (9) DVT prophylaxis Current Visit: Yes Status: Acute - Time Spent With Patient Total time spent is greater than 50% in coordination of care (as documented) at patient's floor/unit and/or counseling patient: - Constitutional Vitals: Temp Pulse Resp BP Pulse Ox 98.4 F 72 17 125/83 97 01/04/18 14:35 01/04/18 14:35 01/04/18 14:35 01/04/18 14:35 01/04/18 14:35 Internal Medicine: Result - Labs CBC & Chem 7: 01/04/18 05:26 01/04/18 05:26 Labs: Short CBC 01/04/18 Range/Units 05:26 WBC 15.2 H (4.3-11.1) K/mcL Hgb 10.9 L (11.5-15.4) g/dL Hct 35.2 L (35.3-44.9) % Plt Count 247 (140-400) K/mcL Neutrophils # 11.4 H (1.6-8.9) K/mcL BMP 01/04/18 05:26 Sodium 136 Potassium 3.8 Chloride 102 Carbon Dioxide 21 L BUN 56 H Creatinine 2.22 H Glucose 137 H Calcium 8.5 L Liver Function 01/04/18 Range/Units 05:26 Total Bilirubin 0.3 (0.3-1.0) mg/dL AST 32 (13-39) Units/L ALT 15 (7-52) Units/L Alkaline Phosphatase 58 (34-104) Units/L Albumin 3.2 L (3.5-5.7) g/dL - ABG Interpretation ABG results: PT/INR, D-dimer PT 12.1 Seconds (9.4-12.1) 01/02/18 16:06 - Impressions Impressions Echocardiogram 01/03/18 23:45 Impressions: LVEF 20-25%. Severe global left ventricular systolic dysfunction. Diastolic dysfunction, NOS Moderate aortic stenosis by valve area, mild by gradient likely underestimated secondary to low cardiac output Mild pulmonary hypertension. Recommend cardiology consultation Left Ventricular Wall Motion: Rest Echo Findings The apex, apical inferior, mid inferior, basal inferior, apical anterior, mid anterior, basal anterior, apical septal, mid inferior septal, basal inferior septal, apical lateral, mid anterior lateral, basal anterior lateral, mid anterior septal, mid inferior lateral, basal anterior septal and basal inferior lateral harmon were hypokinetic. Findings: Study Quality * Technically adequate exam. Right Ventricle * Normal right ventricular structure and function. Left Atrium * Normal left atrial size. Right Atrium * Normal right atrial size. Interatrial Septum * No evidence of PFO by color Doppler. Aorta * Normally sized aortic root. Pericardium * The pericardium appears normal. ECG Findings * Normal sinus rhythm. Left Ventricle * Severe global left ventricular systolic dysfunction. * LVEF 20-25%. * Diastolic dysfunction, NOS Mitral Valve * No mitral stenosis. * Mildly calcified mitral valve leaflets. * Small fliamentous structure attached to mitral valve consistent with ruptured chordae * Mild mitral regurgitation. Aortic Valve * No aortic regurgitation. * Mildly calcified aortic valve leaflets. * Trileaflet aortic valve. * Moderate aortic stenosis. * Peak and mean gradients are 15 8 mmHg, respectively. Pulmonic Valve * No pulmonic regurgitation. * No pulmonic stenosis. Tricuspid Valve * Estimated RVSP is 37 mmHg. * Mild pulmonary hypertension. * No tricuspid stenosis. * Mild tricuspid regurgitation. * Estimated RA pressure is 10-15 mmHg. IVC * The IVC is dilated. * < 50% respiratory change. - Attending Attestation I examined this patient and my medical decision-making was reviewed with the Resident Physician on 01/04/18. I agree with the documented findings, disposition and treatment plan as described except to the extent set forth below. Ms Lopez is currently admitted for acute septic shock due to pneumonia. Her hemodynamics have improved. She remains high risk due to potential for worsening respiratory and clinical status. Ms Lopez is breathing a little better. Her BP has improved. She continues to have some chest congestion. No fever or chills. She has had some looser stool. Exam alert Comfortable at this time lying flat in bed. Mucus membranes dry Heart distant Lungs with rales and rhonchi bilaterally Abd soft I/P 1. Septic shock resolved 2. CAP 3. Monitor fluid status - may need diuresis 4. FABIANA - improving Further diagnoses and plan as above.
[2018-01-04] MEDS: Heparin 25,000 UNIT/500 ML D5W 25,000 UNIT/500 ML BAG IVC SCH (16:29)
[2018-01-04] MEDS ORDERED: *HR* Metoprolol 5 MG/5 ML VIAL IVP ONE (17:58)
[2018-01-04] MEDS ORDERED: Amiodarone Premix 150 MG/100 ML BAG IVPB ONE (18:03)
[2018-01-04 18:36] LABS: Calcium 8.1 mg/dL (8.6-10.3); Magnesium 1.8 mg/dL (1.6-2.6); Potassium 3.3 mEq/L (3.5-5.1)
[2018-01-04] MEDS ORDERED: Potassium Chloride 40 MEQ, Lidocaine 1% 2 ML in D5% in Water 500 ML IVPB ONE (18:44)
--- NOTE | 2018-01-04 18:46 | Event Note ---
<Geoffrey Garza - Last Filed: 01/04/18 18:40> Date of Encounter: 01/04/18 Time of Encounter: 18:00 I was alerted of the patient's rapid heart rate at 166 BPM by the patient's nurse. I arrived at bedside and asked the patient she is doing. She said that she was feeling short of breath and did not know how she is feeling, however she denied chest pain at that time. Monitor was demonstrating heart rate of greater than 160, it appeared to be a wide complex tachycardia and there was concern for V. tach. EKG was ordered which demonstrated a regular wide complex tachycardia with a rate of 165, and I ordered 5 mg Lopressor IV push. This did bring the patient's heart rate down to the 140s, however her blood pressure dropped to approximately 90/50. At that time I ordered 1 g magnesium IV, and 150 mg amiodarone bolus. The patient quickly reduce her heart rate to approximately 100-115 BPM, and the monitor more clearly demonstrated atrial fibrillation with rapid ventricular response. Blood pressure was monitored again, and remained stable. The patient began to feel better and appeared better clinically. I have ordered a low-dose diltiazem drip at this time to start at 2.5, stat labs have been ordered. Stat labs drawn at the beginning of the encounter demonstrate sodium 131, potassium 3.3, chloride 94, magnesium 1.8. I did place an order for 40mg IV potassium. <Hoang Duran - Last Filed: 01/04/18 19:39> Date of Encounter: 01/04/18 Ms Lopez developed rapid heart rate 160s. Complex was wide concerning for VT. She was treated as above and had improvement in her heart rate. Rhythm irregular at that time c/w a fib. I was at bedside as above. CCM 42min
[2018-01-05 03:47] LABS: Albumin 3.1 g/dL (3.5-5.7); Albumin/Globulin Ratio 1.1 (1.1-2.2); Bilirubin,Total 0.4 mg/dL (0.3-1.0); Calcium 8.6 mg/dL (8.6-10.3); Globulin 2.7 g/dL (2.4-3.5); Total Protein 5.8 g/dL (6.4-8.9)
[2018-01-05] MEDS: *HR* Heparin 5,000 UNIT/ML VIAL IVP PRN (04:17)
[2018-01-05] MEDS ORDERED: *HR* Metoprolol 5 MG/5 ML VIAL IVP ONE ×2 (05:56→05:58)
[2018-01-05] MEDS ORDERED: Levalbuterol Neb 1.25 MG/3 ML IH PRN (06:01)
[2018-01-05] MEDS ORDERED: Levalbuterol Neb 1.25 MG/3 ML ONE (06:04)
[2018-01-05 07:03] LABS: Basophils # 0.1 K/mcL (0.0-0.2); Basophils % 0.5 %; Eosinophils # 0.5 K/mcL (0.0-0.6); Eosinophils % 2.1 %; Hematocrit 36.5 % (35.3-44.9); Hemoglobin 11.5 g/dL (11.5-15.4); Immature Granulocytes % 4.2 % (0-4); Lymphocytes % 28.5 %; Mean Corpuscular HGB Conc 31.5 g/dL (31.6-35.5); Mean Platelet Volume 10.5 fL (9.4-12.4); Monocytes # 1.8 K/mcL (0.0-1.3); Monocytes % 7.5 %; Nucleated Red Blood Cells 0.6 /100 WBC (0); Platelet Count 475 K/mcL (140-400); Red Cell Distribution Width 15.9 % (11.5-14.5); Segmented Neutrophils % 57.2 %
[2018-01-05 07:17] LABS: Calcium 8.7 mg/dL (8.6-10.3); Potassium 3.9 mEq/L (3.5-5.1)
[2018-01-05 07:23] LABS: Troponin I 5.02 ng/mL (< 0.04)
[2018-01-05] MEDS ORDERED: Isovue-370 500 ML INFUS..BTL IV ONE (07:26)
[2018-01-05] MEDS ORDERED: Furosemide 40 MG/4 ML VIAL IVP ONE ×2 (07:31→08:20)
[2018-01-05 07:35] LABS: Prothrombin Time 11.8 Seconds (9.4-12.1)
[2018-01-05 08:04] LABS: Activated Partial Thrombo Time 131.5 Seconds (26.0-36.0)
[2018-01-05] MEDS ORDERED: Lacri-Lube 3.5 GM TUBE BOTH EYES PRN (08:06)
[2018-01-05 08:11] LABS: Heparin anti-factor XA UFH 0.68 IU/mL (0.30-0.70)
[2018-01-05] MEDS: Insulin LISPRO 300 UNITS/3 ML VIAL SQ SCH ×5 (08:24→23:48)
--- NOTE | 2018-01-05 08:24 | Event Note ---
<Sandra Ribera - Last Filed: 01/05/18 08:12> Date of Encounter: 01/05/18 Time of Encounter: 05:55 I was alerted by this patient's nurse that the patient was tachycardic with heart rate 164, blood pressure 116/69 and short of breath. Upon my arrival to the bedside the patient was sitting up in bed and stated that she was short of breath. She denied chest pain, palpitations. She was tachycardic at 164, blood pressure 116/69. She was on high flow oxygen with O2 saturation 95%. Her nurse had just started her Cardizem drip because she was just diagnosed the day before with new atrial fibrillation and had been started on heparin and Cardizem however overnight her heart rate went to the 60s so the Cardizem drip was stopped. Review of her medical records showed that she had had a similar episode the previous day when she was diagnosed with new atrial fibrillation and was given Lopressor which improved the tachycardia. EKG was ordered and demonstrated wide complex tachycardia. Her labs were reviewed and magnesium was ordered. She was given one dose of Lopressor which then decreased her heart rate to the 60s. The patient was resting comfortably when all of a sudden she became unresponsive to myself and her nursing staff despite sternal rub, prompting the patient to talk. Upon examining her pupils her right pupil was reactive to light and her left pupil was constricted and unreactive. The attending was called and a stroke alert was called the patient was immediately sent down for a head CT where upon arrival she developed agonal breathing and was taken to the ED for intubation. She was intubated and chest x-ray confirmed appropriate placement and she was taken for head CT which demonstrated no acute hemorrhage. [facility] neurologist was contacted and recommended CTA of head and neck, and not to transfer to [facility], and consultation of neurologist at [facility]. She was then transferred to the ICU. <Carito Saha - Last Filed: 01/06/18 03:40> Date of Encounter: 01/06/18 Stroke alert was initiated. Patient was moving all extremities except right upper extremity. Immediately taken to radiology department for head CT where she developed agonal breathing and got intubated with RSI protocol. Procedure well-tolerated. 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 Family was contacted. Her son on the way to the hospital. Did contact to [facility] who recommended CT angiogram of head and neck and not to transfer [facility]. Patient was transferred to ICU in the presence of her attending physician.
[2018-01-05 08:29] LABS: ABG Base Excess -4 mEq/L (-2 to 3); ABG HCO3 26 mEq/L (21-27); ABG Oxygen Saturation 97 % (95-98); ABG PCO2 70 mmHg (35-45); ABG PH 7.17 pH Units (7.32-7.45); ABG PO2 119 mmHg (85-104); ABG TCO2 28 mEq/L (20-26); Blood Gas Modality VC; Blood Gas Respiration Rate 14; Blood Gas VT 430 cc
--- NOTE | 2018-01-05 08:29 | Procedure Note ---
Date of procedure: 01/05/18 Pre-op diagnosis: Respiratory distress Post-op diagnosis: same Procedure: Date: 01/05/2018 Time: 642 Indication: Respiratory Distress Resident: Sandra Ribera Attending: Carito Saha A time-out was completed verifying correct patient, procedure, site, positioning , and special equipment if applicable. The patient was placed in a flat position. Sedation was obtained using rocuronium 80mg, and additionally with Etomidate 20mg. The patient was easily ventilated using an ambu bag. The MAC 3 BLADE was used and inserted into the oropharynx at which time there was a Grade 1 view of the vocal cords. A 7.5-syrian endotracheal tube was inserted and visualized going through the vocal cords. The stylette was removed. Colorimetric change was visualized on the CO2 meter. Breath sounds were heard in both lung steward equally. The endotracheal tube was placed at 22 cm, measured at the teeth. Attending was present for the entire procedure. A chest x-ray was ordered to assess for pneumothorax and verify endotrachealtube placement. Estimated Blood Loss: 0 cc The patient tolerated the procedure well and there were no complications. Anesthesia: MAC Was there an web press operator assistant present: No Estimated blood loss (cc): 0 Specimen: none Pathology: none sent Condition: critical Disposition: ICU
[2018-01-05] MEDS: Dexmedetomidine HCl 400 MCG/100 ML MLS IVC SCH (08:34)
--- NOTE | 2018-01-05 08:40 | Pulmonology Consult Note ---
<Alfonso Gonzales W - Last Filed: 01/05/18 11:03> Date of Encounter: 01/05/18 Medications and Allergies Acetaminophen [Tylenol Arthritis] 650 mg PO Q6HR PRN 01/02/18 [History] Furosemide [Lasix] 40 mg PO DAILY 01/02/18 [History] Gabapentin [Neurontin] 200 mg PO TID 01/02/18 [History] Insulin Glargine [Lantus] 40 unit SQ BID 01/02/18 [History] Loratadine [Allergy Relief] 10 mg PO DAILY 01/02/18 [History] Amlodipine Besylate [Amlodipine Besylate] 10 mg PO DAILY 01/03/18 [History] Aspirin Enteric Coated [Aspirin EC] 325 mg PO DAILY 01/03/18 [History] Atorvastatin Calcium 80 mg PO HS 01/03/18 [History] Cholecalciferol (D-3) [Vitamin D] 5,000 unit PO DAILY 01/03/18 [History] Lisinopril [Zestril] 40 mg PO DAILY 01/03/18 [History] 3 Allergy/AdvReac Type Severity Reaction Status Date / Time No Known Allergies Allergy Verified 01/02/18 11:31 All Systems: The remainder of the systems were reviewed and are negative Physical Examination Vital Signs: Vital Signs, Last 4 Hours Temp Pulse Resp BP Pulse Ox 01/05/18 09:36 20 78/52 94 01/05/18 09:06 64 20 104/55 95 01/05/18 08:15 70 01/05/18 08:01 14 126/82 98 01/05/18 08:00 97.6 F 66 14 126/82 98 01/05/18 06:53 14 98 01/05/18 06:16 24 90 Ventilator Settings Ventilator Settings: Ventilator Settings, Last 8 Hours Ventilator Tidal Volume 430 Setting Ventilator Tidal Volume 430 Setting Ventilator Tidal Volume 430 Setting Ventilator Tidal Volume 430 Setting Ventilator Tidal Volume 430 Setting Ventilator Tidal Volume 430 Setting Ventilator Respiratory Rate 20 Setting Ventilator Respiratory Rate 20 Setting Ventilator Respiratory Rate 14 Setting Ventilator Respiratory Rate 14 Setting Ventilator Respiratory Rate 14 Setting Ventilator Respiratory Rate 14 Setting Actual Respiratory Rate 20 Actual Respiratory Rate 14 Actual Respiratory Rate 14 Actual Respiratory Rate 14 Positive End Expiratory 8 Pressure Positive End Expiratory 8 Pressure Positive End Expiratory 8 Pressure Positive End Expiratory 5 Pressure Positive End Expiratory 8 Pressure Positive End Expiratory 5 Pressure Peak Inspiratory Airway 23 Pressure Peak Inspiratory Airway 28 Pressure Peak Inspiratory Airway 28 Pressure Peak Inspiratory Airway 32 Pressure Results - Laboratory Findings CBC and BMP: 01/05/18 06:44 01/05/18 06:44 ABG ABG pH 7.24 pH Units (7.32-7.45) L 01/05/18 09:37 ABG pCO2 53 mmHg (35-45) H 01/05/18 09:37 ABG pO2 79 mmHg (85-104) L D 01/05/18 09:37 ABG O2 Saturation 93 % (95-98) L 01/05/18 09:37 PT/INR, D-dimer PT 11.8 Seconds (9.4-12.1) 01/05/18 06:44 Abnormal lab findings: Abnormal lab results WBC 24.4 K/mcL (4.3-11.1) H D 01/05/18 06:44 MCHC 31.5 g/dL (31.6-35.5) L 01/05/18 06:44 RDW 15.9 % (11.5-14.5) H 01/05/18 06:44 Plt Count 475 K/mcL (140-400) H D 01/05/18 06:44 Immature Gran % 4.2 % (0-4) H 01/05/18 06:44 Neutrophils # 14.0 K/mcL (1.6-8.9) H 01/05/18 06:44 Lymphocytes # 7.0 K/mcL (0.6-4.6) H 01/05/18 06:44 Monocytes # 1.8 K/mcL (0.0-1.3) H 01/05/18 06:44 Nucleated RBCs/100 WBC 0.6 /100 WBC (0) H 01/05/18 06:44 APTT 131.5 Seconds (26.0-36.0) H* D 01/05/18 06:44 ABG pH 7.24 pH Units (7.32-7.45) L 01/05/18 09:37 ABG pCO2 53 mmHg (35-45) H 01/05/18 09:37 ABG pO2 79 mmHg (85-104) L D 01/05/18 09:37 ABG O2 Saturation 93 % (95-98) L 01/05/18 09:37 ABG Base Excess -5 mEq/L (-2 to 3) L 01/05/18 09:37 Sodium 134 mEq/L (136-145) L 01/05/18 06:44 BUN 53 mg/dL (8-23) H 01/05/18 06:44 Creatinine 1.78 mg/dL (0.60-1.20) H 01/05/18 06:44 Est GFR ( Amer) 33 (> 60) L 01/05/18 06:44 Est GFR (Non-Af Amer) 27 (> 60) L 01/05/18 06:44 BUN/Creatinine Ratio 30 (6-26) H 01/05/18 06:44 Glucose 159 mg/dL (70-105) H 01/05/18 06:44 POC Glucose 166 mg/dL (70-99) H 01/04/18 19:54 Hemoglobin A1c 7.2 % (-5.6) H 01/03/18 00:07 Troponin I 5.02 ng/mL (< 0.04) H* 01/05/18 06:44 Serum Total Protein 5.8 g/dL (6.4-8.9) L 01/05/18 03:11 Albumin 3.1 g/dL (3.5-5.7) L 01/05/18 03:11 Triglycerides 233 mg/dL (< 150) H 01/03/18 00:07 VLDL Cholesterol, Calc 47 mg/dL (< 31) H 01/03/18 00:07 HDL Cholesterol 25 mg/dL (40-59) L 01/03/18 00:07 Urine Clarity Cloudy (Clear) A 01/03/18 04:30 Ur Specific [place] 1.026 (1.010-1.025) H 01/03/18 04:30 Urine Protein 100 mg/dL (Neg-Trace) H 01/03/18 04:30 Urine Ketones Trace mg/dL (Negative) H 01/03/18 04:30 Urine Bilirubin Small (Negative) H 01/03/18 04:30 Urine Microscopic WBC 5-15 per hpf (0-3) H 01/03/18 04:30 Ur Squamous Epith Cells Many per lpf (None-Few) H 01/03/18 04:30 - Microbiology Findings Microbiology Findings: Microbiology, Last 48 Hours 01/03/18 04:30 Legionella Antigen - Final Urine,Catheterized Streptococcus pneumoniae Antigen (M - Final - Clinical Findings Intake & Output: Intake & Output 01/04/18 01/05/18 01/05/18 23:59 07:59 15:59 Intake Total 455 / 455 34.9 / 34.9 269 / 269 Output Total 575 / 575 200 / 200 300 / 300 Balance -120 / -120 -165.1 / -165.1 -31 / -31 Weight 91.5 kg 92 kg Consult Discharge Plan - Plan Referrals: Zia Watkins CNP [Primary Care Provider] - 01/22/18 11:40 am - Attending Attestation I examined this patient and my medical decision-making was reviewed with the Resident Physician. I agree with the documented findings, disposition and treatment plan as described except to the extent set forth below. We independently had [id number] contact with the patient I spent 42min of Critical Care time with this patient. It involved decision making of high complexity to assess, manipulate, and support vital organ system failure and/or to prevent further life threatening deterioration of the patient' s condition. The time involved in the performance of separately reportable procedures was not counted toward critical care time. Patient seen and examined at bedside Labs, radiology, chart personally reviewed. Management was reviewed during multidisciplinary critical care rounds. PRINCIPAL TRAINER: Acute encephalopathy I suspect is related to hypercarbic respiratory failure but there was some concern for acute CVA head CT without acute process. Neurology consulted plan for MRI when more stable Pulm: Acute hypoxic hypercapnic respiratory failure secondary to cardiogenic pulmonary edema requiring emergent intubation. The patient has noted respiratory acidosis which I have adjusted the vent settings to increase minute ventilation as well as increasing pain over lung recruitment overall acceptable oxygenation although ventilation remains impaired. Cards: Patient presented with NSTEMI now complicated by acute pulmonary edema which likely was mediated by suspected supraventricular tachyarrhythmia or ventricular arrhythmia. Unfortunately patient has become bradycardic and hypotensive since being in the ICU this may been a manifestation of sedative that was given. Central venous catheter was placed and patient has been started on vasopressor support. Limited echocardiogram is been ordered troponin remains elevated but downtrending from previous value. ECG is been ordered and we will review. Discussed the case with cardiology and they are to see the patient. Possible left heart catheterization. Repeat Lactate pending continue aspirin and statin GI: GI prophylaxis given Nutrition: Nothing by mouth for now Renal: Patient presented with acute kidney injury which is improving will give gentle loop diuretic today and continue to UOP Monitored, Cont to Trend sCr and monitor Electrolytes. ID: Patient was being treated virtually acquired pneumonia we will continue the antibiotics at this time I do not see any indication for broadening coverage based upon overnight events is a suspect this is a primary cardiac etiology Heme/Onc: DVT prophylaxis given Endo: Glucose Monitored Integ/MSK: Skin Care per routine ICU Nursing Protocol to prevent ulcers. Lines: All lines examined without evidence of infection : Dispo: Remain in ICU for critical illness CODE: Full cold I updated the patient's next of kin her son. He expressed mother's wishes not to have heroic measures performed but to "do anything he can if there is a chance to get better but stop if they [doctors] felt that it was not doing any good" we will continue to closely monitor the trajectory of this but it is possible that more aggressive therapy may not result in overall improvement mortality morbidity or quality of life in this particular case prognosis remains guarded <Dajuan Galvan - Last Filed: 01/05/18 13:08> Date of Encounter: 01/05/18 Time of Encounter: 08:40 Assessment and Plan (1) Acute respiratory failure with hypercapnia Current Visit: Yes Status: Acute Patient did have episode of unresponsiveness. The night team did notice patient was weak on the left side also having nonresponsive pupil is on the left side. CT had no acute abnormalities. [facility] did see the patient and did not recommend TPA or transferred to their facility for further evaluation. Patient was intubated and placed in the ICU. Patient was acidotic when she got to the ICU so we did change the vent settings to increase patient's rate to help with acidosis. Patient on exam does have bilateral rales this is most likely secondary to pulmonary edema secondary to cardiac dysfunction. Recent echocardiogram had 20% ejection fraction. Patient is having most likely an NSTEMI. Patient has not gone to the Blanching Machine Operator yet due to elevation in creatinine and poor renal function due to acute kidney injury. 4 patient's strokelike symptoms we stop the heparin but kept patient on subcutaneous heparin. Also give patient aspirin. Patient also is said to have MRI/MRA of the head once stable. Neurology's consult it and we appreciate their recommendations. When patient was placed on sedation which included fentanyl and Precedex patient became very hypotensive so central line needed to be placed and started on levo fed to supplement blood pressure. Patient is now stable not. Patient's initial ABG was 7.17/70/119///. Most recent ABG reads as 7.33/ 42/91///. Patient's respiratory acidosis and hypercapnia seems to be resolving we will continue to monitor Repeat echocardiogram Continue on ventilator Get head MRI to rule out stroke. Continue continue to trend creatinine for possible heart catheterization. . (2) NSTEMI (non-ST elevated myocardial infarction) Current Visit: Yes Status: Acute Likely due to demand ischemia but due to high elevations in troponin as high as 41.19 Today troponin is 5.02. We did get repeat EKG did not seem to show atrial fibrillation EKG done shows sinus rhythm at a rate of 62, QRS 132, QTC 444 with a leftward axis. There is no acute ST changes no acute T-wave changes no other signs of ischemia. No signs of heart block, hypertrophy, heart strain. No Shi PW/ Brugada syndrome. No other signs of ischemia. This is unchanged when compared with old EKG. Last night patient did have a couple episodes of possible V. tach patient was given 100 mg bolus of amiodarone. Patient also started on diltiazem. After speaking with cardiology we stopped the diltiazem. Cardiology is still following the patient said if the creatinine continues to trend downward troponin continue to trend downward they will consider heart catheterization once patient is more stable. We appreciate cardiology's recommendations. (3) FABIANA (acute kidney injury) Current Visit: Yes Status: Acute Patient also has acute kidney failure. Creatinine is 1.78 it is seems to be resolving as original creatinine on admission was 3.04. Due to patient's fluid overload status we cannot give too many fluids will continue giving Lasix to help with removing fluid off the lungs. We will limited to 40 mg as needed. (4) Diabetes mellitus Current Visit: Yes Status: Chronic Patient does have history diabetes. Glucose was 194 admission most recent glucose was 159 Patient currently on sliding scale insulin Qualifiers: Diabetes mellitus type: type 2 Diabetes mellitus shelter insulin use: with intermodal customer service use Diabetes mellitus complication status: with neurologic complications Diabetes mellitus complication detail: with unspecified neuropathy Qualified Code(s): 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 2 diabetes mellitus with diabetic neuropathy, unspecified; Z79.4 - MCC (current) use of insulin (5) Pneumonia Current Visit: Yes Status: Suspected Patient was originally admitted admitted here with septic shock secondary to most likely pneumonia. Patient continues to be on azithromycin and ceftriaxone. We will continue to monitor. Patient's difficulty in breathing the episode most recently causing the shortness of breath is most likely secondary to pulmonary edema from the cardiac failure. Qualifiers: Pneumonia type: due to Pneumococcus Laterality: left Lung location: unspecified part of lung Qualified Code(s): J13 - Pneumonia due to Streptococcus pneumoniae (6) DVT prophylaxis Current Visit: Yes Status: Acute Subcutaneous heparin History of Present Illness Consult date: 01/05/18 Requesting physician: Hoang Duran Reason for consult: other (Critical care and ventilator management) Chief complaint: Feeling unwell History of present illness: Ms. Lopez is an 82-year-old female with past medical history of COPD, diabetes, tobacco abuse presented to an outside hospital ED with 3 week history of lethargy. Patient that time did not have any chest pain or shortness of breath. Seen by PCP the day prior to admission. Patient was shown to have a leukocytosis lactic acid of 2.6 troponin of 21, serum creatinine of 3.39, potassium 3.1 and a BNP of 766 chest x-ray showed left perihilar consolidation. EKG done at that time and no ST changes. She was given one aspirin at that time. Patient was being seen by the hospitalist service patient had elevations in the troponin was diagnosed with an and STEMI. While on the floor last night they noticed that patient started to have a change in mental status they went to go reevaluate her there was worry about possible stroke so they sent her down for emergent head CT this came back negative. The [facility] neurology team did see the patient and did not recommend TPA and did not recommend transfer to their neurological Center. At this time they decided to admit the patient back to the ICU. During this change in mental status patient was unable to protect her airway so she was intubated and placed on the ventilator. The critical care team was then consulted. Patient also has acute kidney injury to going for her troponin to go down and that is why the patient has not had catheterization this time. Cardiology is also following the patient Past Med Surg Social Fam HX - Past Medical History Medical history: COPD, diabetes, hyperlipidemia, hypertension, peripheral artery disease Psychiatric history: no psych history - Past Surgical History Surgical History: cataract, herniorrhaphy, vascular surgery Additional surgical history: AAA repair - Social History Smoking Status: Current every day smoker Packs per day: 1 Smokeless Tobacco Status: No Alcohol use: none Drug use: none - Family History Father History Unknown: Yes Mother History Unknown: Yes ROS unobtainable: due to endotracheal tube, due to mental status All Systems: The remainder of the systems were reviewed and are negative Physical Examination Vital Signs: Vital Signs, Last 4 Hours Temp Pulse Resp BP Pulse Ox 01/05/18 08:15 70 01/05/18 08:01 14 126/82 98 01/05/18 08:00 97.6 F 66 14 126/82 98 01/05/18 06:53 14 98 01/05/18 06:16 24 90 General appearance: no acute distress Eyes: nonicteric ENT: oropharynx moist Effort: normal Inspection: normal Auscultation: bilateral: rales Cardiovascular: regular rate and rhythm Gastrointestinal: normoactive bowel sounds, soft, non-tender, non-distended Extremities: no cyanosis, no edema, no clubbing Musculoskeletal: no deformities, ROM normal non-focal exam, pupils equal and round, motor strength normal and symmetric Ventilator Settings Ventilator Settings: Ventilator Settings, Last 8 Hours Ventilator Tidal Volume 430 Setting Ventilator Tidal Volume 430 Setting Ventilator Tidal Volume 430 Setting Ventilator Tidal Volume 430 Setting Ventilator Respiratory Rate 14 Setting Ventilator Respiratory Rate 14 Setting Ventilator Respiratory Rate 14 Setting Ventilator Respiratory Rate 14 Setting Actual Respiratory Rate 14 Actual Respiratory Rate 14 Actual Respiratory Rate 14 Positive End Expiratory 8 Pressure Positive End Expiratory 5 Pressure Positive End Expiratory 8 Pressure Positive End Expiratory 5 Pressure Peak Inspiratory Airway 28 Pressure Peak Inspiratory Airway 28 Pressure Peak Inspiratory Airway 32 Pressure Results - Laboratory Findings CBC and BMP: 01/05/18 06:44 01/05/18 06:44 ABG ABG pH 7.17 pH Units (7.32-7.45) L* 01/05/18 08:25 ABG pCO2 70 mmHg (35-45) H* 01/05/18 08:25 ABG pO2 119 mmHg (85-104) H 01/05/18 08:25 ABG O2 Saturation 97 % (95-98) 01/05/18 08:25 PT/INR, D-dimer PT 11.8 Seconds (9.4-12.1) 01/05/18 06:44 Abnormal lab findings: Abnormal lab results WBC 24.4 K/mcL (4.3-11.1) H D 01/05/18 06:44 MCHC 31.5 g/dL (31.6-35.5) L 01/05/18 06:44 RDW 15.9 % (11.5-14.5) H 01/05/18 06:44 Plt Count 475 K/mcL (140-400) H D 01/05/18 06:44 Immature Gran % 4.2 % (0-4) H 01/05/18 06:44 Neutrophils # 14.0 K/mcL (1.6-8.9) H 01/05/18 06:44 Lymphocytes # 7.0 K/mcL (0.6-4.6) H 01/05/18 06:44 Monocytes # 1.8 K/mcL (0.0-1.3) H 01/05/18 06:44 Nucleated RBCs/100 WBC 0.6 /100 WBC (0) H 01/05/18 06:44 APTT 131.5 Seconds (26.0-36.0) H* D 01/05/18 06:44 ABG pH 7.17 pH Units (7.32-7.45) L* 01/05/18 08:25 ABG pCO2 70 mmHg (35-45) H* 01/05/18 08:25 ABG pO2 119 mmHg (85-104) H 01/05/18 08:25 ABG Total CO2 28 mEq/L (20-26) H 01/05/18 08:25 ABG Base Excess -4 mEq/L (-2 to 3) L 01/05/18 08:25 Sodium 134 mEq/L (136-145) L 01/05/18 06:44 BUN 53 mg/dL (8-23) H 01/05/18 06:44 Creatinine 1.78 mg/dL (0.60-1.20) H 01/05/18 06:44 Est GFR ( Amer) 33 (> 60) L 01/05/18 06:44 Est GFR (Non-Af Amer) 27 (> 60) L 01/05/18 06:44 BUN/Creatinine Ratio 30 (6-26) H 01/05/18 06:44 Glucose 159 mg/dL (70-105) H 01/05/18 06:44 POC Glucose 166 mg/dL (70-99) H 01/04/18 19:54 Hemoglobin A1c 7.2 % (-5.6) H 01/03/18 00:07 Troponin I 5.02 ng/mL (< 0.04) H* 01/05/18 06:44 Serum Total Protein 5.8 g/dL (6.4-8.9) L 01/05/18 03:11 Albumin 3.1 g/dL (3.5-5.7) L 01/05/18 03:11 Triglycerides 233 mg/dL (< 150) H 01/03/18 00:07 VLDL Cholesterol, Calc 47 mg/dL (< 31) H 01/03/18 00:07 HDL Cholesterol 25 mg/dL (40-59) L 01/03/18 00:07 Urine Clarity Cloudy (Clear) A 01/03/18 04:30 Ur Specific [place] 1.026 (1.010-1.025) H 01/03/18 04:30 Urine Protein 100 mg/dL (Neg-Trace) H 01/03/18 04:30 Urine Ketones Trace mg/dL (Negative) H 01/03/18 04:30 Urine Bilirubin Small (Negative) H 01/03/18 04:30 Urine Microscopic WBC 5-15 per hpf (0-3) H 01/03/18 04:30 Ur Squamous Epith Cells Many per lpf (None-Few) H 01/03/18 04:30 - Microbiology Findings Microbiology Findings: Microbiology, Last 48 Hours 01/03/18 04:30 Legionella Antigen - Final Urine,Catheterized Streptococcus pneumoniae Antigen (M - Final - Diagnostic Findings Chest x-ray: report reviewed, image reviewed - Clinical Findings Intake & Output: Intake & Output 01/04/18 01/05/18 01/05/18 23:59 07:59 15:59 Intake Total 455 / 455 34.9 / 34.9 Output Total 575 / 575 200 / 200 Balance -120 / -120 -165.1 / -165.1 Weight 91.5 kg
[2018-01-05] MEDS: Azithromycin 500 MG in D5% in Water 250 ML IVPB SCH (08:47)
[2018-01-05] MEDS: cefTRIAXone 1,000 MG in Water for inj. (sterile) 20 ML 10 ML IVP SCH (08:47)
[2018-01-05] MEDS ORDERED: *HR* Rocuronium Bromide 100 MG/10 ML VIAL IVC ONE (08:48)
[2018-01-05] MEDS ORDERED: *HR* Etomidate 20 MG/10 ML AMPUL IVP ONE (08:48)
[2018-01-05] MEDS: Loratadine 10 MG TABLET PO SCH (08:56)
[2018-01-05] MEDS: Aspirin Enteric Coated 81 MG Tablet PO SCH (08:56)
[2018-01-05] MEDS: Chlorhexidine Rinse 15 ML MOUTHWASH MM SCH ×2 (08:56→20:21)
[2018-01-05] MEDS: Gabapentin 100 MG CAPSULE PO SCH (09:01)
[2018-01-05] MEDS ORDERED: *HR* Midazolam HCl 5 MG/5 ML VIAL IVP ONE (09:04)
[2018-01-05] MEDS: Pantoprazole 40 MG VIAL IVP SCH (09:09)
[2018-01-05] MEDS: Heparin 25,000 UNIT/500 ML D5W 25,000 UNIT/500 ML BAG IVC SCH (09:10)
--- NOTE | 2018-01-05 09:25 | Neurology - Consult Note ---
<Luiz Blackwood R - Last Filed: 01/05/18 11:15> Date of Encounter: 01/05/18 Time of Encounter: 09:20 History of Present Illness HPI: Ms. Lopez is a 82 year old female, presented on 01/02/2018 and admitted, undergoing treatment for pneumonia, septic shock, and NSTEMI. She developed wide complex tachycardia and new on set atrial fibrillation last night. Patient become unresponsive this morning, requiring intubation. Asymmetric pupils were noted with a fixed and constricted left pupil. Stroke alert was called, patient sent for head CT, neurology consulted. Past Med Surg Social Fam HX - Past Medical History Medical history: COPD, diabetes, hyperlipidemia, hypertension, peripheral artery disease Psychiatric history: no psych history - Past Surgical History Surgical History: cataract, herniorrhaphy, vascular surgery Additional surgical history: AAA repair - Social History Smoking Status: Current every day smoker Packs per day: 1 Smokeless Tobacco Status: No Alcohol use: none Drug use: none - Family History Father History Unknown: Yes Mother History Unknown: Yes Medications and Allergies Acetaminophen [Tylenol Arthritis] 650 mg PO Q6HR PRN 01/02/18 [History] Furosemide [Lasix] 40 mg PO DAILY 01/02/18 [History] Gabapentin [Neurontin] 200 mg PO TID 01/02/18 [History] Insulin Glargine [Lantus] 40 unit SQ BID 01/02/18 [History] Loratadine [Allergy Relief] 10 mg PO DAILY 01/02/18 [History] Amlodipine Besylate [Amlodipine Besylate] 10 mg PO DAILY 01/03/18 [History] Aspirin Enteric Coated [Aspirin EC] 325 mg PO DAILY 01/03/18 [History] Atorvastatin Calcium 80 mg PO HS 01/03/18 [History] Cholecalciferol (D-3) [Vitamin D] 5,000 unit PO DAILY 01/03/18 [History] Lisinopril [Zestril] 40 mg PO DAILY 01/03/18 [History] 3 Allergy/AdvReac Type Severity Reaction Status Date / Time No Known Allergies Allergy Verified 01/02/18 11:31 ROS unobtainable: due to endotracheal tube (ET tube in place, patient remains sedated) All Systems: The remainder of the systems were reviewed and are negative Physical Examination - Vital Signs Vital Signs: Initial Vital Signs Pulse Resp BP Pulse Ox 72 18 94/58 94 01/02/18 14:30 01/02/18 14:30 01/02/18 14:30 01/02/18 14:30 - Exam Exam: Neurologic exam performed, limited due to sedation and ET tube, patient is able to follow simple commands. Cranial Nerves: Pupils are equal, round, and reactive to light. Examination of gaze limited. Able to turn head side to side. Strength: Weak, but able to squeeze fingers and move upper and lower extremities symmetrically. Sensation: Sensation to light touch remains in tact in all extremities. Reflexes: Biceps, Triceps, Brachioradialis, Patellar, Achilles reflexes are intact and 2+. Babinski negative. Results - Laboratory Findings CBC and BMP: 01/05/18 06:44 01/05/18 06:44 Abnormal lab findings: Abnormal lab results WBC 24.4 K/mcL (4.3-11.1) H D 01/05/18 06:44 MCHC 31.5 g/dL (31.6-35.5) L 01/05/18 06:44 RDW 15.9 % (11.5-14.5) H 01/05/18 06:44 Plt Count 475 K/mcL (140-400) H D 01/05/18 06:44 Immature Gran % 4.2 % (0-4) H 01/05/18 06:44 Neutrophils # 14.0 K/mcL (1.6-8.9) H 01/05/18 06:44 Lymphocytes # 7.0 K/mcL (0.6-4.6) H 01/05/18 06:44 Monocytes # 1.8 K/mcL (0.0-1.3) H 01/05/18 06:44 Nucleated RBCs/100 WBC 0.6 /100 WBC (0) H 01/05/18 06:44 APTT 131.5 Seconds (26.0-36.0) H* D 01/05/18 06:44 ABG pH 7.17 pH Units (7.32-7.45) L* 01/05/18 08:25 ABG pCO2 70 mmHg (35-45) H* 01/05/18 08:25 ABG pO2 119 mmHg (85-104) H 01/05/18 08:25 ABG Total CO2 28 mEq/L (20-26) H 01/05/18 08:25 ABG Base Excess -4 mEq/L (-2 to 3) L 01/05/18 08:25 Sodium 134 mEq/L (136-145) L 01/05/18 06:44 BUN 53 mg/dL (8-23) H 01/05/18 06:44 Creatinine 1.78 mg/dL (0.60-1.20) H 01/05/18 06:44 Est GFR ( Amer) 33 (> 60) L 01/05/18 06:44 Est GFR (Non-Af Amer) 27 (> 60) L 01/05/18 06:44 BUN/Creatinine Ratio 30 (6-26) H 01/05/18 06:44 Glucose 159 mg/dL (70-105) H 01/05/18 06:44 POC Glucose 166 mg/dL (70-99) H 01/04/18 19:54 Hemoglobin A1c 7.2 % (-5.6) H 01/03/18 00:07 Troponin I 5.02 ng/mL (< 0.04) H* 01/05/18 06:44 Serum Total Protein 5.8 g/dL (6.4-8.9) L 01/05/18 03:11 Albumin 3.1 g/dL (3.5-5.7) L 01/05/18 03:11 Triglycerides 233 mg/dL (< 150) H 01/03/18 00:07 VLDL Cholesterol, Calc 47 mg/dL (< 31) H 01/03/18 00:07 HDL Cholesterol 25 mg/dL (40-59) L 01/03/18 00:07 Urine Clarity Cloudy (Clear) A 01/03/18 04:30 Ur Specific [place] 1.026 (1.010-1.025) H 01/03/18 04:30 Urine Protein 100 mg/dL (Neg-Trace) H 01/03/18 04:30 Urine Ketones Trace mg/dL (Negative) H 01/03/18 04:30 Urine Bilirubin Small (Negative) H 01/03/18 04:30 Urine Microscopic WBC 5-15 per hpf (0-3) H 01/03/18 04:30 Ur Squamous Epith Cells Many per lpf (None-Few) H 01/03/18 04:30 Consult Discharge Plan - Plan Referrals: Roland,Zia W, WELDER FITTER [Primary Care Provider] - 01/22/18 11:40 am <Shhanaz Diaz I - Last Filed: 01/05/18 12:14> Date of Encounter: 01/05/18 Assessment and Plan (1) Unresponsive episode Current Visit: Yes Status: Acute Pt was seen and examined, my medical decision was reviewed with the Resident Physician, I agree with the documented findings, disposition and treatment plas as described except to the extent set forth below This is an 82 years old female who was admitted earlier with elevated troponin found to have an acute episode of unresponsiveness when she got intubated CT scan shows concern off subacute questionable infarct not a candidate for acute thrombolysis, also has a history of atrial fibrillation and on heparin now on subcutaneous Currently intubated but able to respond and follow simple commands. On formal neurological examination patient is arousable. Pupils are equal and reactive no facial asymmetry. Motor examination decreased right upper extremity movement as compared to the left lower extremity also decreased movement on the right as compared to the left sensory examination is intact to touch and pain. Hyporeflexia and downgoing toe on the left and Equivocal on the right. Concerning patient's symptoms possible that she may have an acute infarct especially in the setting of atrial fibrillation. Currently she is on subcutaneous heparin she may continue as CT scan did not show any evidence of bleed Suggest to aspirin 325 mg daily via NG tuve or per rectal. MRI of brain without contrast been patient is a stable. She may need a stroke workup including carotid duplex and echocardiogram especially if MRI positive for acute stroke. Other treatment is as per primary team will follow the patient with you, explained to the son who is at the bedside Shahnaz Diaz MD History of Present Illness HPI: Ms. Lopez is a 82 year old female All Systems: The remainder of the systems were reviewed and are negative Physical Examination - Vital Signs Vital Signs: Initial Vital Signs Pulse Resp BP Pulse Ox 72 18 94/58 94 01/02/18 14:30 01/02/18 14:30 01/02/18 14:30 01/02/18 14:30 Results - Laboratory Findings CBC and BMP: 01/05/18 06:44 01/05/18 06:44 Abnormal lab findings: Abnormal lab results WBC 24.4 K/mcL (4.3-11.1) H D 01/05/18 06:44 MCHC 31.5 g/dL (31.6-35.5) L 01/05/18 06:44 RDW 15.9 % (11.5-14.5) H 01/05/18 06:44 Plt Count 475 K/mcL (140-400) H D 01/05/18 06:44 Immature Gran % 4.2 % (0-4) H 01/05/18 06:44 Neutrophils # 14.0 K/mcL (1.6-8.9) H 01/05/18 06:44 Lymphocytes # 7.0 K/mcL (0.6-4.6) H 01/05/18 06:44 Monocytes # 1.8 K/mcL (0.0-1.3) H 01/05/18 06:44 Nucleated RBCs/100 WBC 0.6 /100 WBC (0) H 01/05/18 06:44 APTT 131.5 Seconds (26.0-36.0) H* D 01/05/18 06:44 ABG Base Excess -4 mEq/L (-2 to 3) L 01/05/18 11:24 Sodium 134 mEq/L (136-145) L 01/05/18 06:44 BUN 53 mg/dL (8-23) H 01/05/18 06:44 Creatinine 1.78 mg/dL (0.60-1.20) H 01/05/18 06:44 Est GFR ( Amer) 33 (> 60) L 01/05/18 06:44 Est GFR (Non-Af Amer) 27 (> 60) L 01/05/18 06:44 BUN/Creatinine Ratio 30 (6-26) H 01/05/18 06:44 Glucose 159 mg/dL (70-105) H 01/05/18 06:44 POC Glucose 166 mg/dL (70-99) H 01/04/18 19:54 Hemoglobin A1c 7.2 % (-5.6) H 01/03/18 00:07 Troponin I 5.02 ng/mL (< 0.04) H* 01/05/18 06:44 Serum Total Protein 5.8 g/dL (6.4-8.9) L 01/05/18 03:11 Albumin 3.1 g/dL (3.5-5.7) L 01/05/18 03:11 Triglycerides 233 mg/dL (< 150) H 01/03/18 00:07 VLDL Cholesterol, Calc 47 mg/dL (< 31) H 01/03/18 00:07 HDL Cholesterol 25 mg/dL (40-59) L 01/03/18 00:07 Urine Clarity Cloudy (Clear) A 01/03/18 04:30 Ur Specific [place] 1.026 (1.010-1.025) H 01/03/18 04:30 Urine Protein 100 mg/dL (Neg-Trace) H 01/03/18 04:30 Urine Ketones Trace mg/dL (Negative) H 01/03/18 04:30 Urine Bilirubin Small (Negative) H 01/03/18 04:30 Urine Microscopic WBC 5-15 per hpf (0-3) H 01/03/18 04:30 Ur Squamous Epith Cells Many per lpf (None-Few) H 01/03/18 04:30
[2018-01-05] MEDS: Insulin DETEMIR 100 UNIT/ML X5UNITS SQ SCH ×2 (09:38→19:42)
[2018-01-05 09:42] LABS: ABG Base Excess -5 mEq/L (-2 to 3); ABG HCO3 23 mEq/L (21-27); ABG Oxygen Saturation 93 % (95-98); ABG PCO2 53 mmHg (35-45); ABG PH 7.24 pH Units (7.32-7.45); ABG PO2 79 mmHg (85-104); ABG TCO2 25 mEq/L (20-26); Blood Gas Modality VC; Blood Gas Respiration Rate 20; Blood Gas VT 430 cc
[2018-01-05] MEDS: FentaNYL (PF) 1,000 MCG in 0.9 % Sodium Chloride 80 ML IVC SCH (10:00)
[2018-01-05] MEDS: Norepinephrine 4 MG in D5% in Water 250 ML IVC SCH (10:49)
[2018-01-05] MEDS: Phenylephrine 10 MG in D5% in Water 250 ML IVC SCH (11:09)
[2018-01-05 11:27] LABS: ABG Base Excess -4 mEq/L (-2 to 3); ABG HCO3 22 mEq/L (21-27); ABG Oxygen Saturation 96 % (95-98); ABG PCO2 42 mmHg (35-45); ABG PH 7.33 pH Units (7.32-7.45); ABG PO2 91 mmHg (85-104); ABG TCO2 24 mEq/L (20-26); Blood Gas Modality VC; Blood Gas Respiration Rate 24; Blood Gas VT 430 cc
[2018-01-05] MEDS: Lacri-Lube 3.5 GM TUBE BOTH EYES SCH ×3 (11:30→20:21)
--- NOTE | 2018-01-05 12:37 | Procedure Note ---
<Dajuan Galvan - Last Filed: 01/05/18 12:33> Date of procedure: 01/05/18 Pre-op diagnosis: Hypo-tension Post-op diagnosis: same Procedure: Central line Central Line Procedure Note: Central Venous Catheter Insertion Indication: Hypotension Attending Physician: Dr. Gonzales [employer] Porter: Dr. Dajuan Galvan Indication: This is a 82 year-old female with hypotension . Consent: Detailed explanation of the procedure, treatment options, risks including but not limited to infection and bleeding, and benefits were explained to the family/POA. A written informed consent was obtained. Technique: A time out was preformed identifying the correct procedure, the correct location with the nursing staff. The groin was prepped with 2% chlorhexidine and draped with a full length sterile sheet in the usual fashion. The femoral vein was accessed under ultrasound guidance with an 18 gauge thin wall needle. A triple lumen was inserted via the seldinger technique. Blood was withdrawn from all lumens and flushed with normal saline. The catheter was sutured in place and a sterile dressing was applied over the site prior to removal of drapes. The patient tolerated the procedure well and there were no complications. EBL: 3 mL Complication: None Anesthesia: IV sedation Surgeon: Dajuan Galvan Was there an education administrative assistant present: Yes Ammonium Hydroxide Operator: Franky Baldwin Estimated blood loss (cc): 3 Specimen: None Pathology: none sent Condition: stable Disposition: ICU <Alfonso Gonzales - Last Filed: 01/05/18 14:17> - Attending Attestation I was present and supervised the entire procedure which was performed skillfully by Dr Galvan.
[2018-01-05] MEDS ORDERED: Vasopressin 40 UNIT in D5% in Water 100 ML IV SCH (13:00)
[2018-01-05] MEDS: Vasopressin 40 UNIT in D5% in Water 100 ML IV SCH (13:14)
[2018-01-05] MEDS ORDERED: Amiodarone Premix 360 MG/200 ML BAG IVC ONE (13:23)
[2018-01-05] MEDS ORDERED: Amiodarone Premix 150 MG/100 ML BAG IVPB ONE (13:23)
--- NOTE | 2018-01-05 13:28 | Cardiology Progress Note ---
<Vy Becerra - Last Filed: 01/05/18 13:39> Date of Encounter: 01/05/18 Time of Encounter: 13:00 Assessment and Plan (1) Pneumonia Current Visit: Yes Status: Suspected Per cardiology: -Pneumonia noted per x-ray. -On ATB. -Management per primary service. Qualifiers: Pneumonia type: due to Pneumococcus Laterality: left Lung location: unspecified part of lung Qualified Code(s): J13 - Pneumonia due to Streptococcus pneumoniae (2) NSTEMI (non-ST elevated myocardial infarction) Current Visit: Yes Status: Acute Per cardiology: -Troponins 21, 47.53, 41.19, 5.02. -Denies chest pain. -ECG with no acute ischemic changes. Non-specific ST and T wave abormalities noted. -TTE with LVEF 20-25%, global hypokinesis. -On asa,statin, heparin drip. Not on BB due to hypotension. -Of note, now with FABIANA. -Denies previous cardiac work up. -Discussed and reviewed with , [facility] if/when able with renal function, possible CVA? -Will continue to monitor. (3) FABIANA (acute kidney injury) Current Visit: Yes Status: Acute Per cardiology: -Creatinine 3.46 on admission, now 1.78. -Denies previous renal disease. -Management per primary service. (4) Cardiomyopathy Current Visit: Yes Status: Acute Per cardiology: -TTE with LVEF 20-25%, global hypokinesis. Acute systolic CHF. -Of note, had episode of acute respiratory distress, flash pulmonary edema this am. -Currently intubated and sedated. -Currently net positive 3400ml. -Received IV lasix 40mg IV x3 doses -NOt on BB due to hypotension. Not on telly due to hypotension, FABIANA. -Strict i/os, fluid restriction, daily weights. -Will continue to monitor. Qualifiers: Cardiomyopathy type: unspecified Qualified Code(s): I42.9 - Cardiomyopathy , unspecified (5) Unresponsive episode Current Visit: Yes Status: Acute Per cardiology: -Per notes, had an episode of unresponsiveness. -CT head shows subacute infacrt. -MRI will be performed once hemodynamically stable. (6) Atrial flutter Current Visit: Yes Status: Acute Per cardiology: -New onset a.flutter RVR with aberency. -Average HR 73. -Currently tachycardic with HRs 150-160s. -Hypotensive. BP 70-80s systolic. -[id number] score 7 (age 4, gender, HTN, DM, vascular disease, CHF). Had been on heparin drip, has been stopped in the setting of possible acute CVA. -Discussed and reviewed with , will give 150mg amiodarone bolus, then start amiodarone drip. -Ideally, would recommend heparin drip if able. Qualifiers: Atrial flutter type: unspecified Qualified Code(s): I48.92 - Unspecified atrial flutter Discussion w patient/family: The assessment and plan as outlined above was discussed with the patient who expressed understanding and agreement. All questions were answered. Thank you for involving us in the care of your patient. Please call with any questions. Discussed and reviewed with . Subjective Principal diagnosis: pneumonia, sepsis, NSTEMI Interval history: Patient currently intubated and sedated. All notes reviewed from event. Brain MRI pending when patient is hemodynamically stable. Objective Vital Signs, Last 4 Hours Temp Pulse Resp BP Pulse Ox 01/05/18 13:00 156 25 80/52 100 01/05/18 12:00 96.9 F L 01/05/18 11:27 24 98/49 100 01/05/18 11:23 52 01/05/18 11:00 55 24 77/41 100 01/05/18 10:00 46 18 71/43 94 01/05/18 09:36 20 78/52 94 General: Other (Intubated and sedated) HEENT: Atraumatic, Normocephaly, Mucus Membranes Moist Neck: No JVD, Normal carotid pulses Cardiac: Normal S1 and S2, No Murmur, Other (Regularly irregular ) Lungs: Normal Breath Sounds, No Wheeze, Rales, Rhonchi Neuro: Other (Sedated. ) Abdomen: Soft Skin: No rashes noted on visualized skin Musculoskeletal: No Chest Wall Tenderness Extremities: No Clubbing, No Cyanosis, No Edema, Normal Pulses Results 01/05/18 06:44 01/05/18 06:44 Lab Results Impressions Chest X-Ray 01/04/18 15:11 IMPRESSION: 1. Enlarged cardiac silhouette with pulmonary vascular congestion and a trace right pleural effusion. No overt pulmonary edema. 2. Resolution of the previously identified left parahilar airspace opacities. 3. Discoid right parahilar atelectasis. D/ / Steve Alejandre MD / Setve Alejandre MD Interpreting Provider: Steve Alejandre MD Chest X-Ray 01/05/18 06:50 IMPRESSION: 1. Endotracheal tube tip is approximately 2.7 cm above the vanessa. 2. Slightly increasing bilateral airspace and interstitial opacities likely reflecting pulmonary edema. D/ / 01/05/2018 07:54:56 Janine Pulido MD / Shi Urban Interpreting Provider: Janine Pulido MD Head CT 01/05/18 06:55 IMPRESSION: No acute intracranial hemorrhage. Subacute-remote small left parietal lobe infarct. Critical results were called by Dr. Ty Reinoso MD to [facility] on 01/05/2018 at 07:22. D/ / Ty Reinoso MD / Ty Reinoso MD Interpreting Provider: Ty Reinoso MD Active Medications Acetaminophen (Tylenol) 650 mg PO Q6HR PRN PRN Reason: pain Last Admin: 01/04/18 12:00 Dose: 650 mg Artificial Tears (Lacri-Lube) 1 appl BOTH EYES Q4HR WANDA PRN Reason: Protocol Stop: 07/07/18 12:01 Last Admin: 01/05/18 11:30 Dose: Not Given Artificial Tears (Lacri-Lube) 1 appl BOTH EYES Q2HR PRN; Protocol PRN Reason: Dry Eyes Stop: 07/07/18 08:07 Aspirin (Aspirin) 300 mg RC DAILY WANDA Stop: 01/10/18 13:01 Last Admin: 01/05/18 12:47 Dose: 300 mg Atorvastatin Calcium (Lipitor) 20 mg PO HS WANDA Stop: 07/05/18 21:01 Last Admin: 01/04/18 20:23 Dose: 20 mg Chlorhexidine Gluconate (Chlorhexidine Rinse) 15 ml MM BID WANDA Stop: 07/07/18 09:01 Last Admin: 01/05/18 08:56 Dose: 15 ml Dextrose/Water (Dextrose 50% (Syg)) 25 ml IVP AD PRN PRN Reason: Hypoglycemia Stop: 07/04/18 23:41 Glucagon (Glucagen) 1 mg IM ONCE PRN PRN Reason: Hypoglycemia Stop: 07/04/18 23:41 Glucose (Gluctose) 15 gm PO ONCE PRN PRN Reason: Hypoglycemia Stop: 07/04/18 23:41 Glucose (Gluctose) 30 gm PO ONCE PRN PRN Reason: Hypoglycemia Stop: 07/04/18 23:41 Heparin Sodium (Porcine) (Heparin) 5,000 unit SQ Q8HCO WANDA Stop: 07/07/18 14:01 Azithromycin 500 mg/ Dextrose 250 mls @ 250 mls/hr IVPB DAILY WANDA Stop: 07/05/18 09:01 Last Infusion: 01/05/18 09:45 Dose: Infused Dextrose (Dextrose 5%) 1,000 mls @ 100 mls/hr IVC .Q10H PRN PRN Reason: HYPOGLYCEMIA Stop: 07/04/18 23:41 Ceftriaxone Sodium 1,000 mg/ (Sterile Water) 10 mls @ 600 mls/hr IVP DAILY [facility] Stop: 07/07/18 09:01 Last Infusion: 01/05/18 08:49 Dose: Infused Dexmedetomidine HCl (Precedex Premix) 400 mcg in 100 mls @ 4.575 mls/hr IVC .[id number] WANDA; 0.2 MCG/KG/HR PRN Reason: Protocol Stop: 07/07/18 07:01 Last Titration: 01/05/18 09:44 Dose: 0 mcg/kg/hr, 0 mls/hr Fentanyl Citrate 1,000 mcg/ (Sodium Chloride) 100 mls @ 5 mls/hr IVC CONT WANDA; 50 MCG/HR PRN Reason: Protocol Stop: 07/07/18 08:16 Last Admin: 01/05/18 10:00 Dose: 25 mcg/hr, 2.5 mls/hr Phenylephrine HCl 10 mg/ (Dextrose) 251 mls @ 150.6 mls/hr IVC CONT WANDA; 100 MCG/MIN PRN Reason: Protocol Stop: 07/07/18 10:01 Last Admin: 01/05/18 11:09 Dose: Not Given Norepinephrine Bitartrate 4 mg (/ Dextrose) 254 mls @ 19.05 mls/hr IVC CONT WANDA ; 5 MCG/MIN PRN Reason: Protocol Stop: 07/07/18 10:01 Last Titration: 01/05/18 13:22 Dose: 0 mcg/min, 0 mls/hr Vasopressin 40 unit/ Dextrose 102 mls @ 4.59 mls/hr IV .[id number] WANDA PRN Reason: 0.03 UNIT/MIN Stop: 07/07/18 13:16 Last Admin: 01/05/18 13:14 Dose: 0.03 unit/min, 4.59 mls/hr Amiodarone HCl/Dextrose (Amiodarone Drip Premix 360mg/200ml) 360 mg in 200 mls @ 33.333 mls/hr IVC ONCE ONE PRN Reason: 1 MG/MIN Stop: 01/05/18 19:22 Amiodarone HCl/Dextrose (Amiodarone Drip Premix 360mg/200ml) 360 mg in 200 mls @ 16.667 mls/hr IVC CONT WANDA PRN Reason: 0.5 MG/MIN Stop: 07/07/18 13:31 Amiodarone HCl/Dextrose (Amiodarone Premix 150mg/100ml) 150 mg in 100 mls @ 300 mls/hr IVPB ONCE ONE Stop: 01/05/18 13:42 Insulin Detemir (Levemir) 40 unit SQ BID [facility] Stop: 07/04/18 21:01 Last Admin: 01/05/18 09:38 Dose: Not Given Insulin Human Lispro (Humalog) 0 units SQ Q4HR WANDA PRN Reason: Protocol Stop: 07/07/18 12:01 Last Admin: 01/05/18 11:30 Dose: Not Given Levalbuterol HCl (Xopenex) 1.25 mg IH [id number] PRN PRN Reason: Shortness Of Breath/Wheezing Stop: 07/07/18 10:01 Last Admin: 01/05/18 06:14 Dose: 1.25 mg Loratadine (Claritin) 10 mg PO DAILY WANDA PRN Reason: Protocol Stop: 07/05/18 09:01 Last Admin: 01/05/18 08:56 Dose: Not Given Naloxone HCl (Narcan) 0.4 mg IVP Q2MIN PRN PRN Reason: SEE COMMENTS Stop: 07/04/18 15:41 Pantoprazole Sodium (Protonix) 40 mg IVP DAILY WANDA Stop: 07/07/18 09:01 Last Admin: 01/05/18 09:09 Dose: 40 mg Laboratory Tests 01/02/18 01/02/18 01/03/18 16:02 20:11 00:07 WBC Hgb Potassium Creatinine 3.46 H Magnesium Troponin I 47.53 H* 41.19 H* 01/04/18 01/05/18 01/05/18 05:26 03:11 06:44 WBC 24.4 H D Hgb 10.9 L 11.5 Potassium 4.0 Creatinine 1.75 H Magnesium 2.0 Troponin I 01/05/18 06:44 WBC Hgb Potassium Creatinine Magnesium Troponin I 5.02 H* - Imaging and Cardiology Chest Xray: report reviewed Echo: report reviewed - EKG Interpretation EKG results cardiology: personally reviewed (ECG with atrial flutter RVR.), other (Telemetry reviewed with average HR previous 12 hours noted to be 73, a.fib. PVCs noted. Intermittent a.fib/flutter RVR noted.) Consult Discharge Plan - Plan Referrals: Zia Watkins, ACETYLENE OPERATOR [Primary Care Provider] - 01/22/18 11:40 am <Mj Shepherd - Last Filed: 01/05/18 15:12> Date of Encounter: 01/05/18 Assessment and Plan Discussion w patient/family: The assessment and plan as outlined above was discussed with the patient and/or family members who expressed understanding and agreement. All questions were answered. Thank you for involving us in the care of your patient. Please call with any questions. Objective Vital Signs, Last 4 Hours Temp Pulse Resp BP Pulse Ox 01/05/18 14:00 63 24 90/46 100 01/05/18 13:31 24 86/53 100 01/05/18 13:00 156 25 80/52 100 01/05/18 12:00 96.9 F L 01/05/18 11:27 24 98/49 100 01/05/18 11:23 52 01/05/18 11:00 55 24 77/41 100 Results 01/05/18 06:44 01/05/18 06:44 Lab Results 01/04/18 01/04/18 01/05/18 08:04 19:42 03:11 WBC Hgb Hct Plt Count INR APTT 43.5 H D Sodium 131 L 133 L Potassium 3.3 L 4.0 Chloride 94 L 100 Carbon Dioxide 24 23 BUN 53 H 53 H Creatinine 1.83 H 1.75 H Glucose 392 H 102 Calcium 8.1 L 8.6 Magnesium 1.8 2.0 Total Bilirubin 0.4 AST 19 ALT 13 Alkaline Phosphatase 58 Troponin I 01/05/18 01/05/18 01/05/18 03:11 06:44 06:44 WBC 24.4 H D Hgb 11.5 Hct 36.5 Plt Count 475 H D INR 1.0 APTT 40.7 H 131.5 H* D Sodium Potassium Chloride Carbon Dioxide BUN Creatinine Glucose Calcium Magnesium Total Bilirubin AST ALT Alkaline Phosphatase Troponin I 01/05/18 06:44 WBC Hgb Hct Plt Count INR APTT Sodium 134 L Potassium 3.9 Chloride 100 Carbon Dioxide 23 BUN 53 H Creatinine 1.78 H Glucose 159 H Calcium 8.7 Magnesium Total Bilirubin AST ALT Alkaline Phosphatase Troponin I 5.02 H* - Attending Attestation I have personally performed a face to face evaluation on this patient. I have reviewed and agree with the care plan. History and Exam by me shows:CC CC: unresponse Asked to evaluate pt now sedated and intubated. PMH: reviewed ROS: reviewed Labs, EKG, Xrays, : reviewed PE: pt seen and examined, agree with documentation as documented, with the exception unable to determine chest wall tenderness IMP/Plan 1. NSTEMI: elevated troponins, no acute EKG changes, had episode of unresponsiveness, hypotension, concerning for stroke, hypotension may have contributed to elevated troponin, pt is not a candidate for invasive strategy, continue optimal medical tx as blood pressure allows. 2. PAF: paroxysmal afib with RVR, ventricular response rate now better controlled on IV amiodarone, continue same for now 3. FABIANA: acute renal injury on admits, slowly improving, 4. Pnuemonia: on antibiotics per primary team. 5. Stroke: old sub acute infarct on CT, note plans for MRI of brain when hemodynamics more stable.
[2018-01-05] MEDS: *HR* Heparin 5,000 UNIT/ML VIAL SQ SCH ×2 (13:38→22:21)
[2018-01-05] MEDS ORDERED: Perflutren Lipid Microsphere 2 ML VIAL ONE (15:41)
--- NOTE | 2018-01-05 17:36 | Electrocardiograph Report ---
[address] [address] Test Date: 2018-01-04 Pat Name: Cait Lopez Department: 111 Room: [facility] Gender: F Manager Disaster Recovery: : 1935 Requested By: Hoang Duran Order Number: [id number] Reading MD: Steve Fernandez Measurements Intervals [place] Rate: 165 P: [place]: 0 QRS: -50 QRSD: 140 T: 100 QT: 279 QTc: 370 Interpretive Statements ATRIAL FLUTTER/TACHYCARDIA WITH RAPID VENTRICULAR RESPONSE MARKED LEFT AXIS DEVIATION LEFT BUNDLE BRANCH BLOCK Electronically Signed On 01-05-2018 17:35:13 EDT by Steve Fernandez
--- NOTE | 2018-01-05 17:47 | Electrocardiograph Report ---
[address] [address] Test Date: 2018-01-05 Pat Name: Cait Lopez Department: 111 Room: [facility] Gender: F Trick Rodeo Rider: : 1935 Requested By: Hoang Duran Order Number: [id number] Reading MD: Steve Fernandez Measurements Intervals [place] Rate: 167 P: [place]: 0 QRS: -42 QRSD: 147 T: 103 QT: 269 QTc: 360 Interpretive Statements ATRIAL FLUTTER/TACHYCARDIA WITH RAPID VENTRICULAR RESPONSE MARKED LEFT AXIS DEVIATION LEFT BUNDLE BRANCH BLOCK Electronically Signed On 01-05-2018 17:45:39 EDT by Steve Fernandez
--- NOTE | 2018-01-05 17:47 | Electrocardiograph Report ---
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
--- NOTE | 2018-01-05 17:48 | Electrocardiograph Report ---
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
[2018-01-05] MEDS: Amiodarone Premix 360 MG/200 ML BAG IVC SCH (20:23)
[2018-01-05 21:48] LABS: Bilirubin,Urine Small (Negative); Blood,Urine Large (Negative); Clarity,Urine Cloudy (Clear); Color,Urine Yellow (Yellow); Glucose,Urine (UA) Normal (Normal); Ketones,Urine Negative (Negative); Leukocyte Esterase,Urine Negative (Negative); Nitrite,Urine Negative (Negative); Protein,Urine 30 mg/dL (Neg-Trace); Specific Gravity,Urine 1.021 (1.010-1.025); Urobilinogen,Urine Normal (Normal)
[2018-01-05 21:50] LABS: Hyaline Casts,Urine None Seen per lpf (None-Few); Squamous Epithelial Cell,Urine Moderate per lpf (None-Few)
[2018-01-05 22:15] LABS: Granular Casts,Urine Few per lpf (None Seen)
[2018-01-05 22:17] LABS: Bacteria,Urine Moderate per hpf (None-Few)
[2018-01-05 22:19] LABS: Renal Epithelial Cells,Urine Few per hpf (None-Few)
[2018-01-05 22:20] LABS: RBC,Urine 30-50 per hpf (0-3)
[2018-01-06] MEDS: Lacri-Lube 3.5 GM TUBE BOTH EYES SCH ×3 (03:52→09:31)
[2018-01-06] MEDS: Insulin LISPRO 300 UNITS/3 ML VIAL SQ SCH ×3 (03:53→11:04)
[2018-01-06 04:02] LABS: Basophils % 0.3 %; Eosinophils # 0.1 K/mcL (0.0-0.6); Eosinophils % 0.7 %; Hematocrit 29.2 % (35.3-44.9); Immature Granulocytes % 1.8 % (0-4); Lymphocytes # 1.6 K/mcL (0.6-4.6); Lymphocytes % 12.9 %; Mean Corpuscular HGB Conc 31.8 g/dL (31.6-35.5); Mean Corpuscular Hemoglobin 27.5 pg (28.0-33.3); Mean Corpuscular Volume 86.4 fL (83.0-100.0); Mean Platelet Volume 10.9 fL (9.4-12.4); Monocytes % 8.4 %; Neutrophils # 9.3 K/mcL (1.6-8.9); Nucleated Red Blood Cells 0.2 /100 WBC (0); Platelet Count 195 K/mcL (140-400); Red Blood Count 3.38 M/mcL (3.82-4.97); Red Cell Distribution Width 15.9 % (11.5-14.5); Segmented Neutrophils % 75.9 %
[2018-01-06 04:03] LABS: Hemoglobin 9.3 g/dL (11.5-15.4)
[2018-01-06 04:15] LABS: Calcium 8.3 mg/dL (8.6-10.3); Potassium 3.7 mEq/L (3.5-5.1)
[2018-01-06] MEDS: FentaNYL (PF) 1,000 MCG in 0.9 % Sodium Chloride 80 ML IVC SCH ×4 (04:26→22:49)
[2018-01-06] MEDS: *HR* Heparin 5,000 UNIT/ML VIAL SQ SCH ×2 (05:40→11:05)
[2018-01-06 05:57] LABS: ABG Base Excess -5 mEq/L (-2 to 3); ABG HCO3 19 mEq/L (21-27); ABG Oxygen Saturation 97 % (95-98); ABG PCO2 29 mmHg (35-45); ABG PH 7.43 pH Units (7.32-7.45); ABG PO2 86 mmHg (85-104); ABG TCO2 20 mEq/L (20-26); Blood Gas Modality ASSIST CONTROL; Blood Gas Respiration Rate 24; Blood Gas VT 430 cc
--- NOTE | 2018-01-06 06:38 | Pulmonology Progress Note ---
<JanetAlfonso W - Last Filed: 01/06/18 09:36> Date of Encounter: 01/06/18 Objective PUL Vital signs: Last Vital Signs Temp 98.2 F 01/06/18 08:29 Pulse 76 01/06/18 09:00 Resp 15 01/06/18 09:00 BP 125/55 01/06/18 09:00 Pulse Ox 96 01/06/18 09:00 Ventilator Settings Ventilator Settings: Ventilator Settings, Last 8 Hours Ventilator Tidal Volume 430 Setting Ventilator Tidal Volume 430 Setting Ventilator Tidal Volume 430 Setting Ventilator Tidal Volume 430 Setting Ventilator Tidal Volume 430 Setting Ventilator Tidal Volume 430 Setting Ventilator Tidal Volume 430 Setting Ventilator Tidal Volume 430 Setting Ventilator Tidal Volume 430 Setting Ventilator Tidal Volume 430 Setting Ventilator Respiratory Rate 14 Setting Ventilator Respiratory Rate 24 Setting Ventilator Respiratory Rate 24 Setting Ventilator Respiratory Rate 24 Setting Ventilator Respiratory Rate 24 Setting Ventilator Respiratory Rate 24 Setting Ventilator Respiratory Rate 24 Setting Ventilator Respiratory Rate 24 Setting Ventilator Respiratory Rate 24 Setting Ventilator Respiratory Rate 24 Setting Actual Respiratory Rate 14 Actual Respiratory Rate 24 Actual Respiratory Rate 24 Actual Respiratory Rate 24 Actual Respiratory Rate 24 Actual Respiratory Rate 24 Actual Respiratory Rate 24 Actual Respiratory Rate 24 Positive End Expiratory 8 Pressure Positive End Expiratory 8 Pressure Positive End Expiratory 8 Pressure Positive End Expiratory 8 Pressure Positive End Expiratory 8 Pressure Positive End Expiratory 8 Pressure Positive End Expiratory 8 Pressure Positive End Expiratory 8 Pressure Positive End Expiratory 8 Pressure Positive End Expiratory 8 Pressure Peak Inspiratory Airway 22 Pressure Peak Inspiratory Airway 26 Pressure Peak Inspiratory Airway 26 Pressure Peak Inspiratory Airway 24 Pressure Peak Inspiratory Airway 25 Pressure Peak Inspiratory Airway 30 Pressure Peak Inspiratory Airway 27 Pressure Peak Inspiratory Airway 28 Pressure Peak Inspiratory Airway 26 Pressure Results - Laboratory Findings CBC and BMP: 01/06/18 03:20 01/06/18 03:20 ABG ABG pH 7.43 pH Units (7.32-7.45) 01/06/18 05:52 ABG pCO2 29 mmHg (35-45) L 01/06/18 05:52 ABG pO2 86 mmHg (85-104) 01/06/18 05:52 ABG O2 Saturation 97 % (95-98) 01/06/18 05:52 PT/INR, D-dimer PT 11.8 Seconds (9.4-12.1) 01/05/18 06:44 Abnormal lab findings: Abnormal lab results WBC 12.3 K/mcL (4.3-11.1) H 01/06/18 03:20 RBC 3.38 M/mcL (3.82-4.97) L 01/06/18 03:20 Hgb 9.3 g/dL (11.5-15.4) L D 01/06/18 03:20 Hct 29.2 % (35.3-44.9) L 01/06/18 03:20 MCH 27.5 pg (28.0-33.3) L 01/06/18 03:20 RDW 15.9 % (11.5-14.5) H 01/06/18 03:20 Neutrophils # 9.3 K/mcL (1.6-8.9) H 01/06/18 03:20 Nucleated RBCs/100 WBC 0.2 /100 WBC (0) H 01/06/18 03:20 APTT 131.5 Seconds (26.0-36.0) H* D 01/05/18 06:44 ABG pCO2 29 mmHg (35-45) L 01/06/18 05:52 ABG HCO3 19 mEq/L (21-27) L 01/06/18 05:52 ABG Base Excess -5 mEq/L (-2 to 3) L 01/06/18 05:52 Sodium 134 mEq/L (136-145) L 01/06/18 03:20 Carbon Dioxide 19 mEq/L (23-29) L 01/06/18 03:20 BUN 58 mg/dL (8-23) H 01/06/18 03:20 Creatinine 1.89 mg/dL (0.60-1.20) H 01/06/18 03:20 Est GFR ( Amer) 31 (> 60) L 01/06/18 03:20 Est GFR (Non-Af Amer) 26 (> 60) L 01/06/18 03:20 BUN/Creatinine Ratio 31 (6-26) H 01/06/18 03:20 Hemoglobin A1c 7.2 % (-5.6) H 01/03/18 00:07 Calcium 8.3 mg/dL (8.6-10.3) L 01/06/18 03:20 Troponin I 5.02 ng/mL (< 0.04) H* 01/05/18 06:44 Serum Total Protein 5.8 g/dL (6.4-8.9) L 01/05/18 03:11 Albumin 3.1 g/dL (3.5-5.7) L 01/05/18 03:11 Triglycerides 233 mg/dL (< 150) H 01/03/18 00:07 VLDL Cholesterol, Calc 47 mg/dL (< 31) H 01/03/18 00:07 HDL Cholesterol 25 mg/dL (40-59) L 01/03/18 00:07 Urine Clarity Cloudy (Clear) A 01/05/18 21:30 Urine Protein 30 mg/dL (Neg-Trace) H 01/05/18 21:30 Urine Blood Large (Negative) H 01/05/18 21:30 Urine Bilirubin Small (Negative) H 01/05/18 21:30 Urine Microscopic RBC 30-50 per hpf (0-3) H 01/05/18 21:30 Urine Microscopic WBC 3-5 per hpf (0-3) H 01/05/18 21:30 Ur Squamous Epith Cells Moderate per lpf (None-Few) H 01/05/18 21:30 Urine Bacteria Moderate per hpf (None-Few) H 01/05/18 21:30 Granular Casts Few per lpf (None Seen) H 01/05/18 21:30 - Microbiology Findings Microbiology Findings: Microbiology, Last 48 Hours 01/05/18 15:19 Blood Culture - Preliminary Peripheral Venipuncture Culture is incubating and being continuously monitored for growth. Final report to follow. 01/05/18 15:19 Blood Culture - Preliminary Peripheral Venipuncture Culture is incubating and being continuously monitored for growth. Final report to follow. 01/05/18 15:19 Blood Culture - Preliminary Peripheral Venipuncture Culture is incubating and being continuously monitored for growth. Final report to follow. 01/03/18 04:30 Legionella Antigen - Final Urine,Catheterized Streptococcus pneumoniae Antigen (M - Final - Clinical Findings Intake & Output: Intake & Output 01/05/18 01/06/18 01/06/18 23:59 07:59 15:59 Intake Total 252 / 252 61 / 61 481 / 481 Output Total 125 / 125 50 / 50 25 / 25 Balance 127 / 127 456 / 456 Weight 94.4 kg 94.4 kg Consult Discharge Plan - Plan Referrals: Zia Watkins, TRANSLATIONAL SPECIALIST [Primary Care Provider] - 01/22/18 11:40 am - Attending Attestation I examined this patient and my medical decision-making was reviewed with the Resident Physician. I agree with the documented findings, disposition and treatment plan as described except to the extent set forth below. We independently had [id number] contact with the patient Patient seen and examined at bedside Labs, radiology, chart personally reviewed. Management was reviewed during multidisciplinary critical care rounds. 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 Possible CVA and MRI of brain when stable neurology following continue aspirin and statin Pulm: Acute hypoxic hypercapnic respiratory failure requiring intubation liberated from the dictated BiPAP continue to monitor. Diuresis as tolerated by renal function. She is at high risk for further pulmonary edema because of underlying heart failure and arrhythmia Cards:NSTEMI, EF now 25%. Cardiology following plan for left heart catheter when acute kidney injury resolved. She was in cardiogenic shock (resolved as well A. fib with RVR on amiodarone per cardiology appreciate cardiology recommendations and managing cardiac aspects of this patient's care GI: GI prophylaxis has been given Nutrition: Nothing by mouth for now Renal: FABIANA with low UOP will UOP Monitored, Cont to Trend sCr and monitor Electrolytes. Hold further diuresis today ID: No clear evidence of infection she had been being treated for pneumonia but white count normalized today and chest x-ray is more consistent with cardiac etiology we will stop antibiotics. Increase in diarrhea we will rule out C. difficile although she is afebrile and white count normal Heme/Onc: DVT prophylaxis given Endo: Glucose Monitored Integ/MSK: Skin Care per routine ICU Nursing Protocol to prevent ulcers. Lines: All lines examined without evidence of infection : Dispo: Remain in ICU for monitoring today [facility] CODE: Patient is full code. Prognosis is guarded. Will need to have ongoing conversation with patient and family regarding prognosis and overall goals of care suspect she would benefit from palliative care consultation they are available on Monday <Dajuan Galvan - Last Filed: 01/06/18 09:45> Date of Encounter: 01/06/18 Time of Encounter: 06:38 Assessment and Plan (1) Acute respiratory failure with hypercapnia Current Visit: Yes Status: Acute Patient did have episode of unresponsiveness. The night team did notice patient was weak on the left side also having nonresponsive pupil is on the left side. CT had no acute abnormalities. [facility] did see the patient and did not recommend TPA or transferred to their facility for further evaluation. Patient was intubated and placed in the ICU. Patient was acidotic when she got to the ICU so we did change the vent settings to increase patient's rate to help with acidosis. Patient on exam does have bilateral rales this is most likely secondary to pulmonary edema secondary to cardiac dysfunction. Recent echocardiogram had 20% ejection fraction. Patient is having most likely an NSTEMI. Patient has not gone to the Management Manager yet due to elevation in creatinine and poor renal function due to acute kidney injury. 4 patient's strokelike symptoms we stop the heparin but kept patient on subcutaneous heparin. Also give patient aspirin. Patient also is said to have MRI/MRA of the head once stable. Neurology's consult it and we appreciate their recommendations. When patient became hypotensive we change from levo fed to vasopressin. Patient is still sedated on fentanyl. Patient's initial ABG was 7.17/70/119/26/28/97. Most recent ABGs have normalized. Patient's respiratory acidosis and hypercapnia seems to be resolving we will continue to monitor Continue on ventilator Get head MRI to rule out stroke. This allowed to be done on Monday as patient is still to some unstable to get MRI today. Continue continue to trend creatinine for possible heart catheterization. Patient successfully completed CPAP trial and was extubated today. We will talk with family when they return about if patient does have a desaturation needed intubation again if this is something that the patient and family wants to be done. (2) NSTEMI (non-ST elevated myocardial infarction) Current Visit: Yes Status: Acute Likely due to demand ischemia but due to high elevations in troponin as high as 41.19 Today troponin is 5.02. We did get repeat EKG did not seem to show atrial fibrillation EKG done shows sinus rhythm at a rate of 62, QRS 132, QTC 444 with a leftward axis. There is no acute ST changes no acute T-wave changes no other signs of ischemia. No signs of heart block, hypertrophy, heart strain. No Shi PW/ Brugada syndrome. No other signs of ischemia. This is unchanged when compared with old EKG. Last night patient did have a couple episodes of possible V. tach patient was given 100 mg bolus of amiodarone. Patient also started on diltiazem. After speaking with cardiology we stopped the diltiazem. Cardiology is still following the patient said if the creatinine continues to trend downward troponin continue to trend downward they will consider heart catheterization once patient is more stable. We appreciate cardiology's recommendations. Cardiology did recommend amiodarone drip. This has been started. Also received a total of 3 doses of 40 mg IV Lasix per cardiology team. Last night patient did have a run of A. fib with RVR did become hypotensive so vasopressin had to be restarted. Patient did convert on her own. Repeat echo done yesterday shows LVEF 25%, severe global left ventricular diastolic dysfunction, no left ventricular thrombus, LVEF is unchanged when compared with prior report. (3) FABIANA (acute kidney injury) Current Visit: Yes Status: Acute Patient also has acute kidney failure. Creatinine is 1.78 it is seems to be resolving as original creatinine on admission was 3.04. Due to patient's fluid overload status we cannot give too many fluids will continue giving Lasix to help with removing fluid off the lungs. We will limited to 40 mg as needed. (4) Diabetes mellitus Current Visit: Yes Status: Chronic Patient does have history diabetes. 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 Patient continues to be on azithromycin and ceftriaxone. We will continue to monitor. Patient's difficulty in breathing the episode most recently causing the shortness of breath is most likely secondary to pulmonary edema from the cardiac failure. After further evaluating the patient and we think patient's pulmonary edema is most likely secondary to cardiogenic sources. We do not think there is any signs of pneumonia as patient has had no fevers white count is normal. Due to this we will discontinue all antibiotics including azithromycin and ceftriaxone. We can say that pneumonia is completely resolved Qualifiers: Pneumonia type: due to Pneumococcus Laterality: left Lung location: unspecified part of lung Qualified Code(s): J13 - Pneumonia due to Streptococcus pneumoniae (6) Diarrhea Current Visit: Yes Status: Acute Patient did have an episode diarrhea last night as well as today nursing is concern for possible Clostridium difficile. Due to this we will test for C. difficile place patient in contact precautions. We will wait to treat patient until stool studies return. Qualifiers: Diarrhea type: unspecified type Qualified Code(s): R19.7 - Diarrhea, unspecified (7) DVT prophylaxis Current Visit: Yes Status: Acute Subcutaneous heparin Subjective Principal diagnosis: pneumonia, sepsis, NSTEMI Interval history: No acute events occurred overnight. We did have a long conversation with family prior to him me leaving last night they were considering withdrawing care as they felt patient did not want to have chest compressions done or have a tube down her throat. Family at that time decided they really go speak with the patient and her other sister after speaking with the patient while sedated partially patient was able to voice that she wanted everything done. At that time we decided to keep the patient full code. Patient did well overnight she now has full strength in all extremities. She did have one episode of hypotension and vasopressin did have to be restarted. During this they said patient went to A. fib with RVR but then converted on her own. Objective PUL Vital signs: Last Vital Signs Temp 98.7 F 01/06/18 03:42 Pulse 68 01/06/18 06:00 Resp 24 01/06/18 06:00 BP 105/83 01/06/18 06:00 Pulse Ox 98 01/06/18 06:00 General appearance: no acute distress Eyes: nonicteric ENT: oropharynx moist Neck: supple Effort: normal Auscultation: bilateral: rales Cardiovascular: regular rate and rhythm Gastrointestinal: normoactive bowel sounds, soft, non-tender, non-distended Integumentary: normal Extremities: no cyanosis, no clubbing, edema (1+ bilaterally ) Musculoskeletal: no deformities, ROM normal non-focal exam, pupils equal and round, motor strength normal and symmetric Ventilator Settings Ventilator Settings: Ventilator Settings, Last 8 Hours Ventilator Tidal Volume 430 Setting Ventilator Tidal Volume 430 Setting Ventilator Tidal Volume 430 Setting Ventilator Tidal Volume 430 Setting Ventilator Tidal Volume 430 Setting Ventilator Tidal Volume 430 Setting Ventilator Tidal Volume 430 Setting Ventilator Tidal Volume 430 Setting Ventilator Tidal Volume 430 Setting Ventilator Tidal Volume 430 Setting Ventilator Tidal Volume 430 Setting Ventilator Tidal Volume 430 Setting Ventilator Respiratory Rate 24 Setting Ventilator Respiratory Rate 24 Setting Ventilator Respiratory Rate 24 Setting Ventilator Respiratory Rate 24 Setting Ventilator Respiratory Rate 24 Setting Ventilator Respiratory Rate 24 Setting Ventilator Respiratory Rate 24 Setting Ventilator Respiratory Rate 24 Setting Ventilator Respiratory Rate 24 Setting Ventilator Respiratory Rate 24 Setting Ventilator Respiratory Rate 24 Setting Ventilator Respiratory Rate 24 Setting Actual Respiratory Rate 24 Actual Respiratory Rate 24 Actual Respiratory Rate 24 Actual Respiratory Rate 24 Actual Respiratory Rate 24 Actual Respiratory Rate 24 Actual Respiratory Rate 24 Actual Respiratory Rate 24 Actual Respiratory Rate 24 Actual Respiratory Rate 24 Positive End Expiratory 8 Pressure Positive End Expiratory 8 Pressure Positive End Expiratory 8 Pressure Positive End Expiratory 8 Pressure Positive End Expiratory 8 Pressure Positive End Expiratory 8 Pressure Positive End Expiratory 8 Pressure Positive End Expiratory 8 Pressure Positive End Expiratory 8 Pressure Positive End Expiratory 8 Pressure Positive End Expiratory 8 Pressure Positive End Expiratory 8 Pressure Peak Inspiratory Airway 26 Pressure Peak Inspiratory Airway 24 Pressure Peak Inspiratory Airway 25 Pressure Peak Inspiratory Airway 30 Pressure Peak Inspiratory Airway 27 Pressure Peak Inspiratory Airway 28 Pressure Peak Inspiratory Airway 26 Pressure Peak Inspiratory Airway 28 Pressure Peak Inspiratory Airway 29 Pressure Peak Inspiratory Airway 30 Pressure Peak Inspiratory Airway 30 Pressure Results - Laboratory Findings CBC and BMP: 01/06/18 03:20 01/06/18 03:20 ABG ABG pH 7.43 pH Units (7.32-7.45) 01/06/18 05:52 ABG pCO2 29 mmHg (35-45) L 01/06/18 05:52 ABG pO2 86 mmHg (85-104) 01/06/18 05:52 ABG O2 Saturation 97 % (95-98) 01/06/18 05:52 PT/INR, D-dimer PT 11.8 Seconds (9.4-12.1) 01/05/18 06:44 Abnormal lab findings: Abnormal lab results WBC 12.3 K/mcL (4.3-11.1) H 01/06/18 03:20 RBC 3.38 M/mcL (3.82-4.97) L 01/06/18 03:20 Hgb 9.3 g/dL (11.5-15.4) L D 01/06/18 03:20 Hct 29.2 % (35.3-44.9) L 01/06/18 03:20 MCH 27.5 pg (28.0-33.3) L 01/06/18 03:20 RDW 15.9 % (11.5-14.5) H 01/06/18 03:20 Neutrophils # 9.3 K/mcL (1.6-8.9) H 01/06/18 03:20 Nucleated RBCs/100 WBC 0.2 /100 WBC (0) H 01/06/18 03:20 APTT 131.5 Seconds (26.0-36.0) H* D 01/05/18 06:44 ABG pCO2 29 mmHg (35-45) L 01/06/18 05:52 ABG HCO3 19 mEq/L (21-27) L 01/06/18 05:52 ABG Base Excess -5 mEq/L (-2 to 3) L 01/06/18 05:52 Sodium 134 mEq/L (136-145) L 01/06/18 03:20 Carbon Dioxide 19 mEq/L (23-29) L 01/06/18 03:20 BUN 58 mg/dL (8-23) H 01/06/18 03:20 Creatinine 1.89 mg/dL (0.60-1.20) H 01/06/18 03:20 Est GFR ( Amer) 31 (> 60) L 01/06/18 03:20 Est GFR (Non-Af Amer) 26 (> 60) L 01/06/18 03:20 BUN/Creatinine Ratio 31 (6-26) H 01/06/18 03:20 Hemoglobin A1c 7.2 % (-5.6) H 01/03/18 00:07 Calcium 8.3 mg/dL (8.6-10.3) L 01/06/18 03:20 Troponin I 5.02 ng/mL (< 0.04) H* 01/05/18 06:44 Serum Total Protein 5.8 g/dL (6.4-8.9) L 01/05/18 03:11 Albumin 3.1 g/dL (3.5-5.7) L 01/05/18 03:11 Triglycerides 233 mg/dL (< 150) H 01/03/18 00:07 VLDL Cholesterol, Calc 47 mg/dL (< 31) H 01/03/18 00:07 HDL Cholesterol 25 mg/dL (40-59) L 01/03/18 00:07 Urine Clarity Cloudy (Clear) A 01/05/18 21:30 Urine Protein 30 mg/dL (Neg-Trace) H 01/05/18 21:30 Urine Blood Large (Negative) H 01/05/18 21:30 Urine Bilirubin Small (Negative) H 01/05/18 21:30 Urine Microscopic RBC 30-50 per hpf (0-3) H 01/05/18 21:30 Urine Microscopic WBC 3-5 per hpf (0-3) H 01/05/18 21:30 Ur Squamous Epith Cells Moderate per lpf (None-Few) H 01/05/18 21:30 Urine Bacteria Moderate per hpf (None-Few) H 01/05/18 21:30 Granular Casts Few per lpf (None Seen) H 01/05/18 21:30 - Microbiology Findings Microbiology Findings: Microbiology, Last 48 Hours 01/05/18 15:19 Blood Culture - Preliminary Peripheral Venipuncture Culture is incubating and being continuously monitored for growth. Final report to follow. 01/05/18 15:19 Blood Culture - Preliminary Peripheral Venipuncture Culture is incubating and being continuously monitored for growth. Final report to follow. 01/05/18 15:19 Blood Culture - Preliminary Peripheral Venipuncture Culture is incubating and being continuously monitored for growth. Final report to follow. 01/03/18 04:30 Legionella Antigen - Final Urine,Catheterized Streptococcus pneumoniae Antigen (M - Final - Clinical Findings Intake & Output: Intake & Output 01/05/18 01/05/18 01/06/18 15:59 23:59 07:59 Intake Total 292 / 292 252 / 252 61 / 61 Output Total 375 / 375 125 / 125 50 / 50 Balance -83 / -83 127 / 127 11 / 11 Weight 92 kg 94.4 kg
[2018-01-06] MEDS: Dexmedetomidine HCl 400 MCG/100 ML MLS IVC SCH (07:21)
[2018-01-06] MEDS: Insulin DETEMIR 100 UNIT/ML X5UNITS SQ SCH (08:12)
[2018-01-06] MEDS: Loratadine 10 MG TABLET PO SCH (08:12)
[2018-01-06] MEDS: cefTRIAXone 1,000 MG in Water for inj. (sterile) 20 ML 10 ML IVP SCH (08:15)
[2018-01-06] MEDS: Chlorhexidine Rinse 15 ML MOUTHWASH MM SCH (08:16)
[2018-01-06] MEDS: Pantoprazole 40 MG VIAL IVP SCH (08:16)
[2018-01-06] MEDS: Azithromycin 500 MG in D5% in Water 250 ML IVPB SCH (08:16)
[2018-01-06] MEDS: Amiodarone Premix 360 MG/200 ML BAG IVC SCH (08:40)
[2018-01-06] MEDS: Norepinephrine 4 MG in D5% in Water 250 ML IVC SCH (08:41)
[2018-01-06] MEDS ORDERED: Racepinephrine Neb 0.5 ML VIAL IH ONE (09:10)
[2018-01-06] MEDS: Vasopressin 40 UNIT in D5% in Water 100 ML IV SCH (09:30)
[2018-01-06] MEDS: Phenylephrine 10 MG in D5% in Water 250 ML IVC SCH (09:30)
[2018-01-06] MEDS ORDERED: *HR* LORazepam 2 MG/ML VIAL IVP PRN (11:06)
[2018-01-06] MEDS ORDERED: Haloperidol Lactate 5 MG/ML VIAL IVP PRN ×2 (11:09→11:16)
--- NOTE | 2018-01-06 11:13 | Event Note ---
Date of Encounter: 01/06/18 Time of Encounter: 11:11 Patient was extubated successfully today. She was placed on BiPAP. Patient did call nurse in and took off her mask and stated to the nurse that she wants everything removed and she just wants to go. Nurse then called me and I asked the patient how she was feeling and she says she is ready to go and she is done trying anymore. Patient states that she is does not want CPR to be done as well as not to be reintubated. I asked if she wanted all medications removed and the patient said yes. Patient is able to make her own decisions as she was alert and oriented [address] and time. At this time patient's DNR status was changed to DNR CC she is going be transferred to the palliative floor. Palliative consult was placed as there are no on-call over the weekend. They will see the patient for hospice on Monday. I did order Haldol, Ativan for agitation comfort. Also used atropine drops. Also kept patient's fentanyl drip on board for pain. Family was at bedside during this decision and they do agree.
[2018-01-06] MEDS ORDERED: Atropine 1% Opth Drops 100 DROP/5 ML BOTTLE OP SCH ×2 (15:00)
[2018-01-06] MEDS ORDERED: Atropine 1% Opth Drops 100 DROP/5 ML BOTTLE SL PRN (18:52)
[2018-01-06] MEDS: Atropine Sulfate 1% 40 DROP/2 ML BOTTLE SL PRN (20:02)
[2018-01-06] MEDS: *HR* LORazepam 2 MG/ML VIAL IVP PRN (20:03)
[2018-01-07] MEDS: *HR* LORazepam 2 MG/ML VIAL IVP PRN ×2 (05:27→20:26)
[2018-01-07] MEDS: Atropine Sulfate 1% 40 DROP/2 ML BOTTLE SL PRN ×3 (05:31→18:51)
[2018-01-07] MEDS: FentaNYL (PF) 1,000 MCG in 0.9 % Sodium Chloride 80 ML IVC SCH (12:21)
--- NOTE | 2018-01-07 17:37 | Internal Med Progress Note ---
Date of Encounter: 01/07/18 Time of Encounter: 09:30 - Assessment and plan (1) Acute respiratory failure with hypercapnia Current Visit: Yes Status: Acute Assessment and plan: Pt has elected to be comfort care. She did not want further intubation or aggressive care. (2) NSTEMI (non-ST elevated myocardial infarction) Current Visit: Yes Status: Acute (3) Diabetes mellitus Current Visit: Yes Status: Chronic Assessment and plan: - Comfort measures at this time. Qualifiers: Diabetes mellitus type: type 2 Diabetes mellitus detention insulin use: with detention use Diabetes mellitus complication status: with neurologic complications Diabetes mellitus complication detail: with unspecified neuropathy Qualified Code(s): 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 2 diabetes mellitus with diabetic neuropathy, unspecified; Z79.4 - vermin exterminator (current) use of insulin (4) Hypertension Current Visit: Yes Status: Acute Qualifiers: Hypertension type: essential hypertension Qualified Code(s): I10 - Essential (primary) hypertension (5) Septic shock Current Visit: Yes Status: Resolved - Time Spent With Patient Total time spent is greater than 50% in coordination of care (as documented) at patient's floor/unit and/or counseling patient: - Subjective Interval history: Ms Lopez is currently admitted for resp failure. She is now comfort care and will be seen by palliative care. Ms Lopez does not respond to me. She appears comfortable at this time. - Constitutional Vitals: Temp Pulse Resp BP Pulse Ox 98.3 F 79 15 110/69 92 01/07/18 16:13 01/07/18 16:13 01/07/18 16:13 01/07/18 16:13 01/07/18 16:13 Exam: Did not respond to me. - Head Head exam: Present: normocephalic - Eye Eye exam: Present: EOMI, conjuntiva pink - ENT ENT exam: Present: mucous membranes dry - Respiratory Respiratory exam: Present: decreased breath sounds. Absent: wheezes - Cardiovascular Cardiovascular exam: Present: RRR. Absent: tachycardia - GI/Abdominal GI/Abdominal exam: Present: hypoactive bowel sounds, soft - Extremities Exam Extremities exam: Present: warm. Absent: tenderness - Neurological Exam Additional comments: Did not respond to me today. - Skin Skin exam: Present: dry, warm Internal Medicine: Result - Labs CBC & Chem 7: 01/06/18 03:20 01/06/18 03:20 - ABG Interpretation ABG results: ABG ABG pH 7.43 pH Units (7.32-7.45) 01/06/18 05:52 ABG pCO2 29 mmHg (35-45) L 01/06/18 05:52 ABG pO2 86 mmHg (85-104) 01/06/18 05:52 ABG O2 Saturation 97 % (95-98) 01/06/18 05:52 PT/INR, D-dimer PT 11.8 Seconds (9.4-12.1) 01/05/18 06:44 Consult Discharge Plan - Plan Referrals: Zia Watkins, CLINICAL DOCUMENTATION CLERK [Primary Care Provider] - 01/22/18 11:40 am
[2018-01-08] MEDS: FentaNYL (PF) 1,000 MCG in 0.9 % Sodium Chloride 80 ML IVC SCH (03:23)
[2018-01-08] MEDS: *HR* LORazepam 2 MG/ML VIAL IVP PRN (05:43)
[2018-01-08] MEDS ORDERED: OXYCODONE Oral CONC 10 MG/0.5 ML ORAL.SYG SL PRN (09:15)
--- NOTE | 2018-01-08 09:53 | Palliative - Consult Note ---
Date of Encounter: 01/08/18 Time of Encounter: 08:45 - Assessment and Plan (1) Dyspnea Current Visit: Yes Status: Acute Assessment and plan: Patient Oxygen saturation 95% on 3L NC. Patient's family requested Oxygen LPM be decreased to 2L for improved comfort. Agonal breathing noted. Fentanyl drip infusing. Qualifiers: Dyspnea type: unspecified Qualified Code(s): R06.00 - Dyspnea, unspecified (2) Septic shock Current Visit: Yes Status: Resolved (3) Pneumonia Current Visit: Yes Status: Suspected Qualifiers: Pneumonia type: due to Pneumococcus Laterality: left Lung location: unspecified part of lung Qualified Code(s): J13 - Pneumonia due to Streptococcus pneumoniae (4) NSTEMI (non-ST elevated myocardial infarction) Current Visit: Yes Status: Acute Assessment and plan: Patient expressed desire to discontinue all treatment. (5) Unresponsive episode Current Visit: Yes Status: Acute Assessment and plan: Patient nonresponsive during assessment. (6) Acute respiratory failure with hypercapnia Current Visit: Yes Status: Acute Assessment and plan: Oxygen 2L per nasal cannula. (7) Goals of care, counseling/discussion Current Visit: Yes Status: Acute Assessment and plan: Spoke with patient's son regarding goals of care. Expressed desire to keep patient over the next 24 hours to stabilize symptoms prior to discharge as currently on Fentanyl infusion. Patient to remain on hospitalist service at this time. Will reconvene tomorrow regarding clinical status and need for either transition to [facility] versus home with hospice. Dr. Salas notified. Patient son in agreement. Spoke with patient's nurse Danyelle to titrate down Fentanyl drip. Added Oxycodone SL for comfort. Will continue to monitor patient. Palliative-CN HPI - Data of Consult Patient: new to practice Consult date: 01/06/18 Requesting Physician: Hoang Duran DO Primary Care Provider: Zia Watkins CNP Family Provider: Jade Hemphill - Consult Narrative Palliative Care/Comfort Measures: Palliative care Reason for consult: Wants comfort care and hospice History of present illness: Ms. Lopez is a 82 year old female arrived to [facility] ED for 3 weeks lethargy, transferred to [facility] on 01/02/18. Patient reported generalized weakness and cough. PMH COPD, DM, HTN, PAD, and current smoker. Initial EKG Sinus rhythm, left ventricular hypertrophy and ST-T change with baseline artifact. Admitted for Septic shock, NSTEMI, Pneumonia, FABIANA, and Hypokalemia. Initial CT showed Patchy airspace opacity in the left upper lobe concerning for pneumonia, Increased interstitial markings and small pleural effusions, and Small abdominal ascites. Cardiology recommend LHC if clinically warranted with heparin drip; TTE pending. Repeat EKG showing Atrial fibrillation with aberrant conduction or ventricular premature complexes, marked left axis deviation, and moderate intraventricular conduction delay. ECHO completed. Xray showed Enlarged cardiac silhouette with pulmonary vascular congestion and a trace right pleural effusion, No overt pulmonary edema; Resolution of the previously identified left parahilar airspace opacities; and Discoid right parahilar atelectasis. On 01/04/18, patient had new onset of Rapid heart rate of 166, Cardizem drip started. Repeat EKG showing Atrial flutter/tachycardia with rapid ventricular response marked left axis deviation and left BBB. EKG showing: Atrial flutter/tachycardia with RVR, marked left axis deviation, and left BBB. : New onset of tachycardia with shortness of breath; Patient intubated. Transferred to ICU. Assymetric pupils noted and stroke alert called. CT showed subacute infarct. 01/06/18: patient extubated, tolerated well. Changed code status to DNRCC and transferred to to consider transition to Hospice care. Palliative care consulted as patient desired comfort care and hospice. Patients son (Blayne Lopez, ) present at bedside upon arrival for assessment. Patient nonresponsive to stimulation. Agonal breathing noted. VSS. Patient wearing 3L per NC. Fentanyl drip infusing. No nonverbal signs of pain or discomfort noted. CC: Hoang Duran, DO Past Med Surg Social Fam HX - Past Medical History Medical history: COPD, diabetes, hyperlipidemia, hypertension, peripheral artery disease Psychiatric history: no psych history - Past Surgical History Surgical History: cataract, herniorrhaphy, vascular surgery Additional surgical history: AAA repair - Social History Smoking Status: Current every day smoker Packs per day: 1 Smokeless Tobacco Status: No Alcohol use: none Drug use: none - Family History Father History Unknown: Yes Mother History Unknown: Yes Medications and Allergies Acetaminophen [Tylenol Arthritis] 650 mg PO Q6HR PRN 01/02/18 [History] Furosemide [Lasix] 40 mg PO DAILY 01/02/18 [History] Gabapentin [Neurontin] 200 mg PO TID 01/02/18 [History] Insulin Glargine [Lantus] 40 unit SQ BID 01/02/18 [History] Loratadine [Allergy Relief] 10 mg PO DAILY 01/02/18 [History] Amlodipine Besylate [Amlodipine Besylate] 10 mg PO DAILY 01/03/18 [History] Aspirin Enteric Coated [Aspirin EC] 325 mg PO DAILY 01/03/18 [History] Atorvastatin Calcium 80 mg PO HS 01/03/18 [History] Cholecalciferol (D-3) [Vitamin D] 5,000 unit PO DAILY 01/03/18 [History] Lisinopril [Zestril] 40 mg PO DAILY 01/03/18 [History] 3 Allergy/AdvReac Type Severity Reaction Status Date / Time No Known Allergies Allergy Verified 01/02/18 11:31 ROS unobtainable: due to mental status Palliative Care-Exam - Constitutional Vitals: Temp Pulse Resp BP Pulse Ox 97.7 F 78 18 107/70 95 01/07/18 19:27 01/07/18 19:27 01/07/18 19:27 01/07/18 19:27 01/07/18 19:27 General appearance: Present: disheveled, morbidly obese, no acute distress - Head Head Exam: Present: atraumatic - Expanded Head Exam Head exam expanded IM: Absent: raccoon eyes - Eye Eye exam: Absent: EOMI, normal appearance (assymetrical pupils with right side fixed and dialated.) - ENT ENT exam: Present: mucous membranes dry, normal external ear exam - Expanded ENT Exam Mouth Exam: Absent: drooling - Neck Neck exam: Present: normal inspection - Respiratory Respiratory exam: Present: accessory muscle use, decreased breath sounds, rhonchi. Absent: respiratory distress - Cardiovascular Cardiovascular exam: Present: irregular rhythm - Expanded Cardiovascular Exam Peripheral pulses: 2+: Radial (L), Radial (R), Posterior Tibialis (L), Posterior Tibialis (R), Dorsalis Pedis (L) PM, Dorsalis Pedis (R) PM - GI/Abdominal Exam GI/Abdominal exam: Present: diminished bowel sounds, distended - Expanded GI/Abdominal Exam GI/Abdominal exam: Present: ascites - Rectal Rectal exam: Present: deferred - Catheter Type: Urethral (Parr) - Extremities Exam Extremities exam: Present: pedal edema. Absent: calf tenderness - Neurological Exam Neurological exam: Present: altered. Absent: alert - Expanded Neurological Exam Coma Scale Eye Opening: None Coma Scale Motor Response: None Coma Scale Verbal Response: None Coma Scale Total: 3 - Psychiatric Psychiatric exam: Present: flat affect. Absent: anxious Internal Medicine - CN: Reslt - Labs CBC & Chem 7: 01/06/18 03:20 01/06/18 03:20 - ABG Interpretation ABG results: ABG ABG pH 7.43 pH Units (7.32-7.45) 01/06/18 05:52 ABG pCO2 29 mmHg (35-45) L 01/06/18 05:52 ABG pO2 86 mmHg (85-104) 01/06/18 05:52 ABG O2 Saturation 97 % (95-98) 01/06/18 05:52 PT/INR, D-dimer PT 11.8 Seconds (9.4-12.1) 01/05/18 06:44 Consult Discharge Plan - Plan Referrals: Zia Watkins, MID TEACHER [Primary Care Provider] - 01/22/18 11:40 am Palliative Quality Palliative Quality: Screen for Code Status: Yes (with family), Screen for Goals of Care: Yes (with family), Screen for Pain: Yes (Fentanyl drip infusing), If Pain Regimen Started, Initiate Bowel Regimen: NA, Screen for Nausea/Vomitting: NA (nonresponsive) Code Status: 01/02/18 15:23 Resuscitation Status: Active [RES] Routine Comment: Resuscitation Status: Full Code 01/06/18 11:05 Resuscitation Status: Active [RES] Routine Comment: Resuscitation Status: DNR-Comfort Care
--- NOTE | 2018-01-08 14:45 | Electrocardiograph Report ---
[place] [id number] Test Date: 2018-01-05 Pat Name: Cait Lopez Department: 109 Room: 2A Gender: F Government Affairs Fellow: : 1935 Requested By: Hoang Duran Order Number: [id number] Reading MD: Remy Robert Measurements Intervals [place] Rate: 157 P: [place]: 0 QRS: -43 QRSD: 123 T: 147 QT: 291 QTc: 379 Interpretive Statements ATRIAL FLUTTER/TACHYCARDIA WITH RAPID VENTRICULAR RESPONSE MARKED LEFT AXIS DEVIATION MODERATE INTRAVENTRICULAR CONDUCTION DELAY Electronically Signed On 01-08-2018 14:43:29 EDT by Remy Robert
--- NOTE | 2018-01-08 15:40 | Electrocardiograph Report ---
[place] [address] Test Date: 2018-01-06 Pat Name: Cait Lopez Department: 109 Room: 2A Gender: F Volunteer Recruiter: : 1935 Requested By: Alfonso Gonzales Order Number: [id number] Reading MD: Remy Robert Measurements Intervals [place] Rate: 155 P: [place]: 0 QRS: -28 QRSD: 132 T: 156 QT: 285 QTc: 372 Interpretive Statements ATRIAL FLUTTER/TACHYCARDIA WITH RAPID VENTRICULAR RESPONSE Electronically Signed On 01-08-2018 15:39:10 EDT by Remy Robert
--- NOTE | 2018-01-08 16:33 | Internal Med Progress Note ---
<Ovidio Vu - Last Filed: 01/08/18 16:40> Date of Encounter: 01/08/18 Time of Encounter: 13:00 - Assessment and plan (1) NSTEMI (non-ST elevated myocardial infarction) Current Visit: Yes Status: Acute Assessment and plan: - No interventions at this point because the patient has chosen to be on comfort care (2) Diabetes mellitus Current Visit: Yes Status: Chronic Assessment and plan: -comfort care at this time Qualifiers: Diabetes mellitus type: type 2 Diabetes mellitus call center supervisor insulin use: with call center supervisor use Diabetes mellitus complication status: with neurologic complications Diabetes mellitus complication detail: with unspecified neuropathy Qualified Code(s): 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 2 diabetes mellitus with diabetic neuropathy, unspecified; Z79.4 - half-way (current) use of insulin (3) Septic shock Current Visit: Yes Status: Resolved (4) Hypertension Current Visit: Yes Status: Acute Assessment and plan: - comfort care at this point Qualifiers: Hypertension type: essential hypertension Qualified Code(s): I10 - Essential (primary) hypertension (5) Acute respiratory failure with hypercapnia Current Visit: Yes Status: Acute Assessment and plan: patient has elected to be comfort care. She's on 2 if O2, Fentanyl drip is helping with her dyspnea - Time Spent With Patient Total time spent is greater than 50% in coordination of care (as documented) at patient's floor/unit and/or counseling patient: - Subjective Interval history: - patient has elected to be on comfort care. She will be under inpatient hospice care. she was somnolent when i met her. - Constitutional Vitals: Temp Pulse Resp BP Pulse Ox 97.7 F 78 18 107/70 95 01/07/18 19:27 01/07/18 19:27 01/07/18 19:27 01/07/18 19:27 01/07/18 19:27 General appearance: Present: A&O X 3 - Head Head exam: Present: atraumatic, normocephalic - Neck Neck exam general surgery: Present: trachea midline - Respiratory Respiratory exam: Present: decreased breath sounds - Cardiovascular Cardiovascular exam: Present: RRR Internal Medicine: Result - Labs CBC & Chem 7: 01/06/18 03:20 01/06/18 03:20 - ABG Interpretation ABG results: ABG ABG pH 7.43 pH Units (7.32-7.45) 01/06/18 05:52 ABG pCO2 29 mmHg (35-45) L 01/06/18 05:52 ABG pO2 86 mmHg (85-104) 01/06/18 05:52 ABG O2 Saturation 97 % (95-98) 01/06/18 05:52 PT/INR, D-dimer PT 11.8 Seconds (9.4-12.1) 01/05/18 06:44 Consult Discharge Plan - Plan Referrals: Zia Watkins, DOCK GRADER [Primary Care Provider] - 01/22/18 11:40 am <Derek Garcia - Last Filed: 01/08/18 17:25> Date of Encounter: 01/08/18 - Assessment and plan (1) Diabetes mellitus Current Visit: Yes Status: Chronic Qualifiers: Diabetes mellitus type: type 2 Diabetes mellitus care home insulin use: with call center supervisor use Diabetes mellitus complication status: with neurologic complications Diabetes mellitus complication detail: with unspecified neuropathy Qualified Code(s): 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 2 diabetes mellitus with diabetic neuropathy, unspecified; 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.4 - network program manager (current) use of insulin (2) Septic shock Current Visit: Yes Status: Resolved (3) NSTEMI (non-ST elevated myocardial infarction) Current Visit: Yes Status: Acute (4) Hypertension Current Visit: Yes Status: Acute Qualifiers: Hypertension type: essential hypertension Qualified Code(s): I10 - Essential (primary) hypertension (5) Acute respiratory failure with hypercapnia Current Visit: Yes Status: Acute - Time Spent With Patient Total time spent is greater than 50% in coordination of care (as documented) at patient's floor/unit and/or counseling patient: - Constitutional Vitals: Temp Pulse Resp BP Pulse Ox 97.7 F 78 18 107/70 95 01/07/18 19:27 01/07/18 19:27 01/07/18 19:27 01/07/18 19:27 01/07/18 19:27 Internal Medicine: Result - Labs CBC & Chem 7: 01/06/18 03:20 01/06/18 03:20 - ABG Interpretation ABG results: ABG ABG pH 7.43 pH Units (7.32-7.45) 01/06/18 05:52 ABG pCO2 29 mmHg (35-45) L 01/06/18 05:52 ABG pO2 86 mmHg (85-104) 01/06/18 05:52 ABG O2 Saturation 97 % (95-98) 01/06/18 05:52 PT/INR, D-dimer PT 11.8 Seconds (9.4-12.1) 01/05/18 06:44 - Attending Attestation I examined this patient and my medical decision-making was reviewed with the Resident Physician Dr. Vu. I agree with the documented findings, disposition and treatment plan as described except to the extent set forth below. Ms. Lopez is an 82-year-old female with past medical history of COPD, diabetes, tobacco abuse presented to an outside hospital ED with 3 week history of lethargy. Patient that time did not have any chest pain or shortness of breath. Seen by PCP the day prior to admission. Pt was admitted here with severe sepsis, Pneumonia, FABIANA and NSTEMI. Later pt had new onset Afib, Stroke like symptoms and went into Acute hypoxic resp failure. Pt was intubated and transferred to ICU. Pt was extubated on 01/06/18 and family requested for comfort care. Now pt is on fentanyl gtt and resting comfortably. Talked to pt's son at bed side and explained to him about current care Gen: Sedative Chest: Diminished BS Heart: S1S2+ a/p 1. Acute hypoxic resp failure 2. Sepsis with pna 3. NSTEMI 4. FABIANA Cont comfort care measures will try to wean her off the Fentanyl gtt and switch to PO Oxycodone, Roxanol Ativan PRN
[2018-01-08 17:54] VITALS: BP 101/60
--- NOTE | 2018-01-11 07:43 | Discharge Summary ---
Date of Encounter: 01/08/18 Time of Encounter: 11:30 - Discharge Diagnosis (1) Severe sepsis with acute organ dysfunction Priority: Primary Status: Acute (2) Septic shock Priority: Primary Status: Resolved (3) Pneumonia Priority: Primary Status: Suspected Qualifiers: Pneumonia type: due to Pneumococcus Laterality: left Lung location: unspecified part of lung Qualified Code(s): J13 - Pneumonia due to Streptococcus pneumoniae (4) NSTEMI (non-ST elevated myocardial infarction) Priority: Primary Status: Acute (5) Diabetes mellitus Priority: Secondary Status: Chronic Qualifiers: Diabetes mellitus type: type 2 Diabetes mellitus oil heaterman insulin use: with fdc use Diabetes mellitus complication status: with neurologic complications Diabetes mellitus complication detail: with unspecified neuropathy Qualified Code(s): 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 2 diabetes mellitus with diabetic neuropathy, unspecified; Z79.4 - terminal operator (current) use of insulin (6) Hypertension Priority: Secondary Status: Acute Qualifiers: Hypertension type: essential hypertension Qualified Code(s): I10 - Essential (primary) hypertension (7) Acute respiratory failure with hypercapnia Priority: Secondary Status: Acute (8) FABIANA (acute kidney injury) Priority: Secondary Status: Acute Hospital course: Ms. Lopez is an 82-year-old female with past medical history of COPD, diabetes, tobacco abuse presented to an outside hospital ED with 3 week history of lethargy. Patient that time did not have any chest pain or shortness of breath. Seen by PCP the day prior to admission. Pt was admitted here with severe sepsis, Pneumonia, FABIANA and NSTEMI. Later pt had new onset Afib, Stroke like symptoms and went into Acute hypoxic resp failure. Pt was intubated and transferred to ICU. Family requested for comfort care, so pt was extubated on and transferred to in patient hospice care. Pt was on 01/08/18 at 1910. I was not in the hospital, however my colleague Dr. Holden and nursing staff did pronounce her and talked to the family. - Time Spent with Patient Total time spent providing and/or coordinating discharge services: - Discharge Medications Home Medications: Acetaminophen [Tylenol Arthritis] 650 mg PO Q6HR PRN 01/02/18 [History] Furosemide [Lasix] 40 mg PO DAILY 01/02/18 [History] Gabapentin [Neurontin] 200 mg PO TID 01/02/18 [History] Insulin Glargine [Lantus] 40 unit SQ BID 01/02/18 [History] Loratadine [Allergy Relief] 10 mg PO DAILY 01/02/18 [History] Amlodipine Besylate [Amlodipine Besylate] 10 mg PO DAILY 01/03/18 [History] Aspirin Enteric Coated [Aspirin EC] 325 mg PO DAILY 01/03/18 [History] Atorvastatin Calcium 80 mg PO HS 01/03/18 [History] Cholecalciferol (D-3) [Vitamin D] 5,000 unit PO DAILY 01/03/18 [History] Lisinopril [Zestril] 40 mg PO DAILY 01/03/18 [History] Allergies/Adverse Reactions: 3 Allergy/AdvReac Type Severity Reaction Status Date / Time No Known Allergies Allergy Verified 01/02/18 11:31 Date of admission: 01/02/18 15:23 Primary care physician: Zia Watkins CNP Consults: 01/06/18 11:06 Consult to Palliative Care [CONS] Routine Comment: Consulting Provider: Palliative Care Libra Reason for Consult: Wants comfort care and hospice Call Completed: No - Constitutional Vitals: Temp Pulse Resp BP Pulse Ox 98.6 F 47 18 101/60 85 01/08/18 17:53 01/08/18 17:53 01/08/18 17:53 01/08/18 17:53 01/08/18 17:53 General appearance: Present: A&O X 3 - Patient Status Disposition: - Discharge Instructions Follow Up With: Zia Watkins CNP [Primary Care Provider] - 01/22/18 11:40 am
== END 2018-01-08 19:10 | disposition expired | DRG 871 ==
LOC: 2NENU → SUATTDRO 15:23 → ICNU 01-03 10:57 → 2NNU 01-03 14:30 → 2NENU 01-04 14:37 → ICNU 01-05 07:51 → 2ANU 01-06 17:28
PROVIDERS: ADMIT Internal Medicine; ATTEND Internal Medicine